=== PATIENT | female | born 1975 | race Caucasian/White ===

== ENCOUNTER 2017-10-09 01:11 | Emergency (ER) | payer OTHER ==
--- NOTE | 2017-10-09 01:51 | ER ---
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 pt stated she ak1 believes she felt something crawl into her ear last week, then she began to have pain to the right ear and now she has itching to the right ear. Transition of care: patient was not received from another setting of care. Onset of symptoms is unknown. Risk Assessment: Do you want to hurt yourself or someone else? Patient reports no desire to harm self or others. Initial Sepsis Screen: Does the patient meet any 2 criteria? No. Patient's initial sepsis screen is negative. Does the patient have a suspected source of infection? No. Patient's initial sepsis screen is negative. Care prior to arrival: None. 01:23 Method Of Arrival: Ambulatory ak1 01:23 Acuity: TAPAN 4 ak1 Triage Assessment: 01:25 General: Appears in no apparent distress. Behavior is calm, cooperative. Pain: ak1 Complains of pain in right ear. 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 - Social history:: Smoking status: Patient uses tobacco products, smokes one pack cigarettes per day. - Ebola Screening: : No symptoms or risks identified at this time. Screenin:25 Abuse screen: Denies threats or abuse. Denies injuries from another. Nutritional ak1 screening: No deficits noted. Tuberculosis screening: No symptoms or risk factors identified. Fall Risk None identified. Assessment: 01:26 General: Appears in no apparent distress. comfortable, Behavior is calm, cooperative, bs1 appropriate for age. Pain: Complains of pain in right ear. Neuro: Level of Consciousness is awake, alert, obeys commands, Oriented to person, place, time, situation, Appropriate for age Denies dizziness, headache. Cardiovascular: Denies chest pain, shortness of breath, Heart tones S1 S2 present Capillary refill < 3 seconds Patient's skin is warm and dry. Respiratory: Airway is patent Trachea midline Respiratory effort is even, unlabored, Respiratory pattern is regular, symmetrical, Breath sounds are clear bilaterally. GI: No signs and/or symptoms were reported involving the gastrointestinal system. : No signs and/or symptoms were reported regarding the genitourinary system. EENT: patient reports pain and itching to right ear and itching to right side of forehead.. Derm: Skin is intact. Musculoskeletal: Circulation, motion, and sensation intact. Capillary refill < 3 seconds, Range of motion: intact in all extremities. 02:21 Reassessment: Patient stayed to assess for reaction from toradol. No reaction noted. bs1 Vital Signs: 01:22 BP 133 / 89; Pulse 96; Resp 18; Temp 97.7; Pulse Ox 97% on R/A; Weight 83.91 kg (R); ak1 Height 5 ft. 4 in. (162.56 cm) (R); Pain 5/10; 02:23 BP 132 / 88; Pulse 91; Resp 18; Temp 98(O); Pulse Ox 100% on R/A; Pain 0/10; bs1 01:22 Body Mass Index 31.75 (83.91 kg, 162.56 cm) ak1 ED Course: 01:14 Patient arrived in ED. es 01:14 Tony Vicente MD is Private Physician. es 01:22 Cici Bonilla, JORJE is Primary Nurse. bs1 01:22 Oliverio Ghosh NP is PHCP. pm1 01:22 Km Weeks MD is Attending Physician. pm1 01:24 Triage completed. ak1 01:25 Arm band placed on Patient placed in an exam room, on a stretcher, Patient notified of ak1 wait time. 01:26 Patient has correct armband on for positive identification. Bed in low position. Call ak1 light in reach. Side rails up X 1. 02:22 No provider procedures requiring assistance completed. Patient did not have IV access bs1 during this emergency room visit. Administered Medications: 01:58 Not Given (Physician Discretion): [place] 10 mg-325 mg 1 tabs PO once pm1 02:02 Drug: TORadol 60 mg Route: IM; Site: right deltoid; bs1 02:20 Follow up: Response: No adverse reaction bs1 Outcome: 01:50 Discharge ordered by MD. pm1 02:22 Discharged to home ambulatory. bs1 02:22 Condition: stable 02:22 Discharge instructions given to patient, Instructed on discharge instructions, follow up and referral plans. medication usage, Demonstrated understanding of instructions, follow-up care, medications, Prescriptions given X 2. 02:23 Patient left the ED. bs1 Signatures: Christie Dowling Amber RN RN ak1 Oliverio Ghosh, CHAR THERAPIST SPEECH pm1 Cici Bonilla, RN RN bs1
--- NOTE | 2017-10-09 01:51 | EDPHYS ---
Physician Documentation [facility] Emergency [facility] Name: Aby Stout Age: 42 yrs Sex: Female : 1975 Arrival Date: 10/09/2017 Time: 01:14 Bed 13 Private MD: Tony Vicente ED Physician Km Weeks HPI: 10/09 02:00 This 42 yrs old Female presents to ER via Ambulatory with complaints of Ear pm1 Pain. 02:00 The patient presents with pain. pm1 02:00 The complaints affect the right ear. Onset: The symptoms/episode began/occurred 1 pm1 week(s) ago. Modifying factors: The symptoms are alleviated by nothing, the symptoms are aggravated by nothing. Associated signs and symptoms: Pertinent negatives: fever, tinnitus, vertigo. Severity of symptoms: in the emergency department the symptoms are unchanged. The patient has not experienced similar symptoms in the past. The patient has not recently seen a physician. 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 - Social history:: Smoking status: Patient uses tobacco products, smokes one pack cigarettes per day. - Ebola Screening: : No symptoms or risks identified at this time. ROS: 02:00 Constitutional: Negative for fever, chills, and weight loss, Eyes: Negative for injury, pm1 pain, redness, and discharge. 02:00 Neck: Negative for injury, pain, and swelling, Cardiovascular: Negative for chest pain, palpitations, and edema, Respiratory: Negative for shortness of breath, cough, wheezing, and pleuritic chest pain, Abdomen/GI: Negative for abdominal pain, nausea, vomiting, diarrhea, and constipation, Back: Negative for injury and pain, MS/Extremity: Negative for injury and deformity, Skin: Negative for injury, rash, and discoloration, Neuro: Negative for headache, weakness, numbness, tingling, and seizure. 02:00 ENT: Positive for dental pain, ear pain, Negative for drainage from ear(s). Exam: 02:00 Constitutional: This is a well developed, well nourished patient who is awake, alert, pm1 and in no acute distress. Head/Face: Normocephalic, atraumatic. Eyes: Pupils equal round and reactive to light, extra-ocular motions intact. Lids and lashes normal. Conjunctiva and sclera are non-icteric and not injected. Cornea within normal limits. Periorbital areas with no swelling, redness, or edema. 02:00 Neck: Trachea midline, no thyromegaly or masses palpated, and no cervical lymphadenopathy. Supple, full range of motion without nuchal rigidity, or vertebral point tenderness. No Meningismus. Chest/axilla: Normal chest wall appearance and motion. Nontender with no deformity. No lesions are appreciated. Cardiovascular: Regular rate and rhythm with a normal S1 and S2. No gallops, murmurs, or rubs. Normal PMI, no JVD. No pulse deficits. Respiratory: Lungs have equal breath sounds bilaterally, clear to auscultation and percussion. No rales, rhonchi or wheezes noted. No increased work of breathing, no retractions or nasal flaring. Abdomen/GI: Soft, non-tender, with normal bowel sounds. No distension or tympany. No guarding or rebound. No evidence of tenderness throughout. Back: No spinal tenderness. No costovertebral tenderness. Full range of motion. Skin: Warm, dry with normal turgor. Normal color with no rashes, no lesions, and no evidence of cellulitis. MS/ Extremity: Pulses equal, no cyanosis. Neurovascular intact. Full, normal range of motion. 02:00 ENT: External ear(s): are unremarkable, Ear canal(s): are normal, TM's: are normal, no evidence of bulging, no dullness, no erythema, no fluid levels, no rupture, no acute changes, Nose: is normal, Mouth: is normal, Dental exam: dental caries, that is moderate, specifically in the lower right third molar (#32), pain, that is moderate, specifically in the lower right third molar (#32). 02:00 Neuro: Orientation: is normal, Motor: moves all fours. Vital Signs: 01:22 BP 133 / 89; Pulse 96; Resp 18; Temp 97.7; Pulse Ox 97% on R/A; Weight 83.91 kg (R); ak1 Height 5 ft. 4 in. (162.56 cm) (R); Pain 5/10; 02:23 BP 132 / 88; Pulse 91; Resp 18; Temp 98(O); Pulse Ox 100% on R/A; Pain 0/10; bs1 01:22 Body Mass Index 31.75 (83.91 kg, 162.56 cm) ak1 MDM: 01:25 Patient medically screened. pm1 01:49 Data reviewed: vital signs. Data interpreted: Pulse oximetry: on room air is 97 %. pm1 Interpretation: normal. Counseling: I had a detailed discussion with the patient and/or guardian regarding: the historical points, exam findings, and any diagnostic results supporting the discharge/admit diagnosis, the need for outpatient follow up, for definitive care, a dentist, to return to the emergency department if symptoms worsen or persist or if there are any questions or concerns that arise at home. 02:04 ED course: Right ear within normal limits. Patient with cavity to right third lower pm1 molar. Likely cause to right ear pain. Recommended evaluation by her dentist. Administered Medications: 01:58 Not Given (Physician Discretion): [place] 10 mg-325 mg 1 tabs PO once pm1 02:02 Drug: TORadol 60 mg Route: IM; Site: right deltoid; bs1 02:20 Follow up: Response: No adverse reaction bs1 Disposition: 07:19 Co-signature as Attending Physician, Km Weeks MD. Disposition: 10/09/17 01:50 Discharged to Home. Impression: Dental pain. - Condition is Stable. - Discharge Instructions: Dental Pain. - Prescriptions for Augmentin 875- 125 mg Oral Tablet - take 1 tablet by ORAL route every 12 hours for 10 days; 20 tablet. Tylenol- Codeine #3 300-30 mg Oral Tablet - take 2 tablets by ORAL route every 6 hours As needed; 20 tablet. - Medication Reconciliation Form, Thank You Letter, Antibiotic Education form. - Follow up: Emergency Department; When: As needed; Reason: Worsening of condition. Follow up: Private Physician; When: 2 - 3 days; Reason: Recheck today's complaints, Continuance of care, Re-evaluation by your physician. - Problem is new. - Symptoms have improved. Signatures: Anjana Li RN RN ak1 Oliverio Ghosh, CHAR SEAM CHECKER pm1 Km Weeks MD MD gs Salazar, Brittany, RN RN bs1 Corrections: (The following items were deleted from the chart) 02:23 01:50 10/09/2017 01:50 Discharged to Home. Impression: Dental pain. Condition is bs1 Stable. Forms are Medication Reconciliation Form, Thank You Letter, Antibiotic Education, Prescription Opioid Use. Follow up: Emergency Department; When: As needed; Reason: Worsening of condition. Follow up: Private Physician; When: 2 - 3 days; Reason: Recheck today's complaints, Continuance of care, Re-evaluation by your physician. Problem is new. Symptoms have improved. pm1
[2017-10-09] MEDS ORDERED: KETOROLAC 30 MG/ML INJ ONE (02:03)
[2017-10-09 02:37] VITALS: BP 132/88; TEMP 98; O2SAT 100
== END 2017-10-09 02:23 | disposition home or self-care (01) ==
LOC: ER 01:11
DX: K08.89 Other specified disorders of teeth and supporting structures (principal); F17.210 Nicotine dependence, cigarettes, uncomplicated; I10 Essential (primary) hypertension; F41.9 Anxiety disorder, unspecified
CPT/HCPCS: 96372; 99283

== ENCOUNTER 2018-08-22 06:34 | Day surgery (SDC) | payer SELFPAY ==
[2018-08-20 16:17] LABS: Urine Appearance CLEAR; Urine Bilirubin NEGATIVE (NEG); Urine Blood NEGATIVE (NEG); Urine Color YELLOW; Urine Glucose NEGATIVE (NEG); Urine Microscopic Reflex NO UMIC; Urine Protein NEGATIVE (NEG); Urine Specific Gravity 1.025 (1.005-1.030); Urine Urobilinogen 0.2 mg/dL (0.2-1.0)
[2018-08-20 16:23] LABS: Absolute Lymphocytes (CBC) 2.5 K/uL (0.7-4.9); Absolute Monocytes 0.8 K/uL (0.1-1.3); Absolute Neutrophil 6.3 K/uL (1.8-8.0); Basophils % 1.1 % (0-1.3); Eosinophils % 1.6 % (0-4.4); Hematocrit 42.2 % (36.0-45.0); Lymphocytes % 25.1 % (15.3-44.8); MPV 10.5 fL (7.6-11.3); Monocytes % 8.3 % (3.3-12.3); RBC Red Blood Cell Count 5.04 M/uL (3.86-4.86)
[2018-08-22] MEDS ORDERED: Ringers Lactate 1,000 ML IV ONE ×2 (07:13→09:06)
[2018-08-22] MEDS ORDERED: CEFAZOLIN/SWI 2gm 2 GM/20 ML SYR ONE (07:13)
[2018-08-22] MEDS ORDERED: SCOPOLAMINE HYDROBROMIDE PATCH TD ONE (07:14)
[2018-08-22] MEDS ORDERED: PROPOFOL 200 MG/20 ML VIAL IV ONE (07:15)
[2018-08-22] MEDS ORDERED: LIDOCAINE 2% MPF 5 ML VIAL ONE (07:15)
[2018-08-22] MEDS ORDERED: FENTANYL CITR 250 MCG/5 ML ONE (07:15)
[2018-08-22] MEDS ORDERED: ROCURONIUM 50 MG/5 ML VIAL IV ONE (07:15)
[2018-08-22] MEDS ORDERED: DEXAMETHASONE 10 MG/ML VIAL ONE (07:15)
[2018-08-22] MEDS ORDERED: MIDAZOLAM HCL 2 MG/2 ML INJ ONE (07:15)
[2018-08-22] MEDS ORDERED: VASOPRESSIN 20 UNIT/ML VIAL ONE (07:27)
[2018-08-22] MEDS ORDERED: NA CHLORIDE 0.9% 100 ML IV ONE (07:27)
[2018-08-22] MEDS ORDERED: CEFAZOLIN/SWI 1gm 1 GM/10 ML SYR ONE (07:27)
[2018-08-22] MEDS ORDERED: EPHEDRINE SULF 50 MG/ML VIAL ONE (09:11)
[2018-08-22] MEDS ORDERED: ONDANSETRON 4 MG/2 ML VIAL ONE (09:40)
[2018-08-22] MEDS ORDERED: GLYCOPYRROLATE 0.2 MG/ML SYR ONE (09:40)
[2018-08-22] MEDS ORDERED: NEOSTIGMINE 1 MG/ML -10 ML VIAL ONE (09:40)
[2018-08-22] MEDS ORDERED: MORPHINE 10 MG/ML VIAL ONE (09:53)
[2018-08-22] MEDS: MORPHINE 4 MG/ML SYR ONE ×2 (10:09→10:14)
[2018-08-22] MEDS ORDERED: MEPERIDINE HCL 25 MG/0.5 ML ONE (10:34)
[2018-08-22 11:27] VITALS: TEMP 97.4; O2SAT 98
--- NOTE | 2018-08-22 13:41 | OP ---
Date of Procedure: 08/22/2018 Surgeon: Nelly Crum MD Preoperative Diagnoses: Stress urinary incontinence, perineocele, possible distal rectocele. Postoperative Diagnoses: Stress urinary incontinence, perineocele, possible distal rectocele. Procedures Performed: 1.Midurethral sling (TVT-O) obturator approach, cystoscopy. 2.Perineocele repair. 3.Distal rectocele repair with perineorrhaphy. Anesthesia: General. Specimens: None. Complications: None. Drains: Camacho catheter and vaginal packing. Findings: Perineocele was present. There was separation of both the deep transverse and superficial transverse perineum. The perineal body was defective and could see the distal part of the rectovagi nal septum detached from the perineal body itself. The patient is a 43-year-old with stress urinary incontinence, urgency symptoms as well. However, th e stress leakage was most distressing for the patient. Denied any dyspareunia at the current time. However, she has decreased sensation and has history of constipation and straining with bowel movemen ts. Has not figured to splint, thus far. A bowel regimen has been prescribed to the patient preop, and she had just started on this before the surgery. The patient is a smoker as well and continues to smoke still, half a pack per day, and her preop POP- Q -2, -2, -5, 5 cm thin, and 7, 0, -2, and -6. No apical defect or anterior defect, although it is s light, it is completely asymptomatic for this patient without any voiding symptoms, so plan was to pe rform the physical therapy alone, physical therapy with local estrogen therapy, or a surgical repair with Kegel's at home, discussing all options the patient was consented, brought to the OR after conse nting for this process. Procedure In Detail: Two grams of Ancef were given preop. The patient was taken back to the OR. Ge neral anesthesia was given, she was placed in a dorsal lithotomy position using Jairon stirrups. Pelv ic exam was performed and the POP-Q is unchanged from the preop -2, -2, -5, 5 cm thin, and 7, the pos terior wall 0, -2, and -6. Rectovaginal exam was performed to confirm the findings as well. Lower abdomen, vulva, vagina, and perineum were prepped and draped in a sterile fashion. Camacho was p laced to drain the bladder and it retracted superiorly. There was slight descent of the anterior wal l due to a slight defect in the apex at level 1, however, no prolapse noted that was significant. Se milton hypermobility noted. Two Allis clamps were placed in the mid urethral area after injecting with dilute vasopressin 20 unit s mixed with 50 cc of normal saline, 15 cc was injected in the midline as well on the sides. Marking pen was used to make the exit points on the groin area, 2 cm lateral to the groin fold and 1 cm supe rior to the horizontal line dropped at the level of the external urethral meatus. The exit points of the TVT-O were marked. Once this was done, the central incision was made with a 15-blade. Dissection carried under the vagi nal mucosa and submucosa, vaginal epithelium and sub-epithelium underneath the fascial plane towards the ipsilateral shoulder at a 45 degree angle to the horizontal and vertical planes underneath, huggi ng the inferior pubic ramus. The obturators space was entered and after the membrane was perforated, the tips of the scissors were opened up and the tract was enlarged, first on the right side, then on the left side. This dissection was performed followed by small amount of bleeding, then the TVT-O k it was opened. Wing guide was placed. The spike was passed in the same direction after passing thro ugh the obturator membrane. The wing guide was removed. Danny was turned in a way that was bringing the handle in the midline after the exit point and came out at the place that was marked on the righ t side, similar pass was taken on the left side without any problems. Then, the sling was adjusted a fter cutting out the plastic spikes in the mid urethral area using the Metzenbaum scissors. Once thi s was optimally placed and tensioned, was able to remove the plastic sheaths and leave the mesh in pl sami. Then, vaginal epithelium and sub-epithelium were closed with the help of a continuous locking 3 -0 Vicryl sutures. The mesh was trimmed on the groins. Skin pulled up to release it from the sling itself and closed wi th Dermabond. The perineocele was addressed after making a triangular incision on the perineum and the triangle inc ision in the vestibule to the distal rectovaginal septum. There was a skin tag on the right part of the hymenal ring, most likely had an epithelial tag about 1.5 cm long. This was very asymmetric and in the way of entry. This is the particular spot that the patient was concerned about, so an ellipti primitivo incision was made in this area injected with vasopressin. This was excised, closed with the help of 3-0 Vicryl, deep stitches were placed and then continuous running subcuticular sutures were place d and this was closed first, then a triangular skin incision was made with the help of a 15-blade aft er injecting this area with the dilute vasopressin about 20 cc was injected, 10 in the vestibule and perineum, and 10 on the sides and the distal posterior wall. The perineal body was dissected out by releasing the perineal skin from the underlying tissues. The deep transverse perineal muscle, all th e muscle complex could be seen just as a remnant, more visible on the right side than on the left gunner e. This appeared to be retracted in this area. So, Allis clamps were placed to hold these, retracte d back to the midline to see how this would come together and closure was planned based on the anatom y of the defect, so once this was planned, then I dissected the top as well opening up the distal par t of the perineal body where there was a defect, then going up the rectovaginal septum about 4 cm int o the posterior midline. Once the posterior wall was exposed, vaginal epithelium was from the rectovaginal septum dissected apart. I could see the defect clearly and so a cizj-lh-tuct suture with 2-0 Vicryl was placed to buttress the proximal part of this disrupted rectovaginal septal defec t. Then, the septal defect was planned to be reattached to the perineal body after the perineal body was reconstructed. The 2-0 Vicryl sutures were taken and end-to-end reapproximation was done using a horizontal mattress suture with a 2-0 [address]-2 needle starting on the left side going in where the muscle had re tracted and pulling it out after placing the first stitch. Then, the horizontal mattress was placed here, tagged with a hemostat. Another stitch was placed distal to it to reconstruct the perineal bod y. A third stitch was placed inferior to it to bring the perineal tissues together most likely inclu ding the superficial part of the external anal sphincter. Two simple 0 Vicryl sutures were placed fr om side to side to reconstruct that. Once those were tied, then the perineal body reconstruction was completed by tying the sutures. Then, the distal rectovaginal septum was brought together with the perineal body while placing a 2-0 Vicryl suture through the rectovaginal and the distal rectovaginal septum, then imbricating it and then coming out through the perineal body and taking it back to the o pposite side of the perineal body and going up into the rectovaginal septum again and bringing this t ogether. The perineocele was reduced by placing the suture and once this was tied down another sutur e was placed to buttress this, a simple 2-0 Vicryl suture was placed on top to hold the distal part o f the septum and the perineal body together. Then the vaginal epithelium was trimmed in the distal p osterior wall. Once everything was made symmetrical and smooth so that there were no rough edges, 2- 0 Vicryl was used to close in a continuous running locked fashion to the level of the vestibule stopp ing just above it. Then 3-0 Vicryl suture was used to continuously run in the subcutaneous plane and then the subcuticular plane. Horizontal mattress running sutures were placed in the distal-most par t closer to the vestibule all the way into the distal posterior wall and the knot was tied over there . The scar on the right lateral aspect and the midline scar, perineal scar were all completely hemos tatic. Rectal exam was performed. No evidence of any trauma to the rectum or foreign body. After c hanging the gloves, vaginal packing was placed. A cystoscopy was performed at the end of the mid ure thral sling to make sure there was no foreign body or trauma to the bladder and there was not, lookin g in the particular area pertinent for an obturator approach. Instrument, needle, and sponge counts were correct at the end the case. EBL was 50. No complications. She will get a voiding trial befor e she is discharged home today. ALEM/MILA Voice ID: [id number] Report ID: [id number]
[2018-08-22 15:32] VITALS: BP 124/68
== END 2018-08-22 15:30 | disposition home or self-care (01) ==
LOC: OR 06:34
PROVIDERS: ATTEND Obstetrics & Gynecology
PROC: 0WQN0ZZ Repair Female Perineum, Open Approach (ICD-10-PCS; 2018-08-22)
PROC: 0TSD0ZZ Reposition Urethra, Open Approach (ICD-10-PCS; 2018-08-22)
PROC: 0JQC0ZZ Repair Pelvic Region Subcutaneous Tissue and Fascia, Open Approach (ICD-10-PCS; principal; 2018-08-22 07:30)
DX: N81.6 Rectocele (principal); N81.81 Perineocele; N39.3 Stress incontinence (female) (male); K59.00 Constipation, unspecified; I10 Essential (primary) hypertension; F41.9 Anxiety disorder, unspecified; F17.210 Nicotine dependence, cigarettes, uncomplicated; Z79.899 Other long term (current) drug therapy
CPT/HCPCS: 36415; 81003; 81025; 85025; 86850; 86900; 86901; J0690; J1100; J2175; J2250; J2405; J2704; J2710; J3010

== ENCOUNTER 2021-12-06 11:30 | Emergency (ER) | payer SELFPAY ==
[2021-12-06] MEDS ORDERED: ONDANSETRON 4 MG/2 ML VIAL ONE ×2 (12:37→15:05)
[2021-12-06] MEDS ORDERED: KETOROLAC 30 MG/ML INJ ONE ×2 (12:40→15:05)
[2021-12-06 13:02] LABS: Absolute Lymphocytes (CBC) 1.4 K/uL (0.7-4.9); Hematocrit 43.9 % (36.0-45.0); Lymphocytes % 11.6 % (15.3-44.8); MPV 9.8 fL (7.6-11.3); RBC Red Blood Cell Count 5.22 M/uL (3.86-4.86)
[2021-12-06 13:11] LABS: Albumin 3.4 g/dL (3.4-5.0); Bilirubin Total 0.5 mg/dL (0.2-1.0); Potassium 4.2 mmol/L (3.5-5.1); Protein, Total 7.2 g/dL (6.4-8.2)
[2021-12-06 14:44] LABS: Urine Blood Negative (Negative); Urine Glucose Negative (Negative); Urine Protein Negative (Negative)
[2021-12-06] MEDS ORDERED: NA CHLORIDE 0.9% 1,000 ML ONE (15:05)
[2021-12-06 15:12] LABS: Urine Mucus Slight /HPF (None Seen); Urine RBC <5 /HPF (None Seen)
--- NOTE | 2021-12-06 15:31 | ER ---
Nurse's Notes [facility] Name: Aby Stout Age: 46 yrs Sex: Female : 1975 Arrival Date: 12/06/2021 Time: 11:38 Bed 12 Private MD: Diagnosis: Vomiting and Diarrhea;Abdominal cramping;Chest discomfort Presentation: 12/06 12:22 Chief complaint: Patient states: vomiting x2 days with abdominal pain "all over". [facility] Coronavirus screen: Vaccine status: Patient reports being unvaccinated. Client denies travel out of the [place] in the last 14 days. Ebola Screen: Patient negative for fever greater than or equal to 101.5 degrees Fahrenheit, and additional compatible Ebola Virus Disease symptoms Patient denies exposure to infectious person. Patient denies travel to an Ebola-affected area in the 21 days before illness onset. Initial Sepsis Screen: Does the patient meet any 2 criteria? No. Patient's initial sepsis screen is negative. Does the patient have a suspected source of infection? No. Patient's initial sepsis screen is negative. Risk Assessment: Do you want to hurt yourself or someone else? Patient reports no desire to harm self or others. 12:22 Method Of Arrival: Ambulatory [facility] 12:22 Acuity: TAPAN 2 [facility] 16:03 Onset of symptoms is unknown. ap3 Triage Assessment: 12:35 General: Appears uncomfortable, obese, well groomed, well developed, Behavior is calm, jh5 cooperative, appropriate for age. Pain: Complains of pain in abdomen. GI: Reports lower abdominal pain, upper abdominal pain. 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 - Social history:: Smoking status: Patient reports the use of cigarette tobacco products. Screenin:02 Abuse screen: Denies threats or abuse. Nutritional screening: No deficits noted. ap3 Tuberculosis screening: No symptoms or risk factors identified. Fall Risk None identified. Assessment: 14:50 Reassessment: Patient appears in no apparent distress at this time. Patient and/or ss family updated on plan of care and expected duration. Pain level reassessed. Patient is alert, oriented x 3, equal unlabored respirations, skin warm/dry/pink. Patient denies pain at this time. Patient states feeling better. Patient states symptoms have improved. 15:00 GI: Bowel sounds present X 4 quads. Abd is soft and non tender X 4 quads. ap3 Vital Signs: 12:22 BP 204 / 99; Pulse 59; Resp 18; Temp 97.2; Pulse Ox 100% ; Weight 81.65 kg; Height 5 5 ft. 4 in. (162.56 cm); Pain 10/10; 14:49 BP 130 / 75; Pulse 70; Resp 18; Pulse Ox 97% on R/A; Pain 0/10; ss 12:22 Body Mass Index 30.90 (81.65 kg, 162.56 cm) 5 ED Course: 11:38 Patient arrived in ED. mr 11:57 Lisbet Sahu MD is Attending Physician. sd2 12:31 Triage completed. 5 12:35 Arm band placed on right wrist. 5 14:25 Skylar Gomez, JORJE is Primary Nurse. ap3 14:43 Urine collected: clean catch specimen, clear, EKG done. Patient maintains SpO2 ss saturation greater than 95% on room air. 14:51 Urine Drug Screen Sent. ss 15:00 Patient has correct armband on for positive identification. Bed in low position. Call ap3 light in reach. Side rails up X 1. 16:03 No provider procedures requiring assistance completed. IV discontinued, intact, ap3 bleeding controlled, No redness/swelling at site. Pressure dressing applied. Administered Medications: 15:03 Drug: NS 0.9% 1000 ml Route: IV; Rate: 1 bolus; Site: right antecubital; ap3 16:02 Follow up: IV Status: Completed infusion; IV Intake: 1000ml ap3 15:03 Drug: Zofran (Ondansetron) 4 mg Route: IVP; Site: right antecubital; ap3 16:02 Follow up: Response: No adverse reaction ap3 15:03 Drug: Ketorolac 15 mg Route: IVP; Site: right antecubital; ap3 16:02 Follow up: Response: No adverse reaction; Pain is decreased ap3 Medication: 16:04 VIS not applicable for this client. ap3 Intake: 16:02 IV: 1000ml; Total: 1000ml. ap3 Outcome: 15:31 Discharge ordered by . sd2 16:03 Discharged to home ambulatory. ap3 16:03 Condition: good 16:03 Discharge instructions given to patient, Instructed on discharge instructions, follow up and referral plans. medication usage, Demonstrated understanding of instructions, follow-up care, medications, Prescriptions given X 2. 16:04 Patient left the ED. ap3 Signatures: Lyndsay Pelletier Shelby, RN RN Skylar Gomez RN RN ap3 Joselyn Nesbitt RN RN jh5 Lisbet Sahu MD MD sd2
--- NOTE | 2021-12-06 15:31 | EDPHYS ---
Physician Documentation [facility] Name: Aby Stout Age: 46 yrs Sex: Female : 1975 Arrival Date: 12/06/2021 Time: 11:38 Bed 12 Private MD: ED Physician Lisbet Sahu HPI: 12/06 12:30 This 46 yrs old Female presents to ER via Unassigned with complaints of Abdominal Pain, sd2 Vomiting, Weakness. 12:51 46-year-old female presents with chief complaint of generalized abdominal cramping, sd2 nausea and vomiting and now generalized weakness. She reports that symptoms started yesterday with no associated fevers but she does endorse diarrhea. She denies any urinary symptoms. She also complains of "lung pain" and reports that this has been ongoing prior to the start of the symptoms. She reports that occasionally she gets this "lung pain" that will upset her stomach as well. She has not taken any medications at home for her symptoms prior to arrival. She reports she has not been able to keep anything down at home including water. She denies any new food exposures that might have caused food poisoning or any known sick contacts.. 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 - Social history:: Smoking status: Patient reports the use of cigarette tobacco products. ROS: 12:51 Constitutional: Negative for fever, chills, and weight loss, Eyes: Negative for injury, sd2 pain, redness, and discharge, Cardiovascular: Negative for chest pain, palpitations, and edema, Respiratory: Negative for shortness of breath, cough, wheezing. : Negative for dysuria, urinary frequency, hesitancy, urgency and hematuria. MS/Extremity: Negative for injury and deformity, Skin: Negative for injury, rash, and discoloration, Neuro: Negative for headache, numbness and tingling. 12:51 Abdomen/GI: Positive for abdominal pain, nausea and vomiting, diarrhea. Exam: 12:51 Constitutional: This is a well developed, well nourished patient who is awake, alert, sd2 and in no acute distress. Head/Face: Normocephalic, atraumatic. Eyes: EOMI, normal conjunctiva bilaterally Chest/axilla: Normal chest wall appearance and motion. Nontender with no deformity. Cardiovascular: Regular rate and rhythm with a normal S1 and S2. No gallops, murmurs, or rubs. 2+ distal pulses. Respiratory: Lungs have equal breath sounds bilaterally, clear to auscultation and percussion. No rales, rhonchi or wheezes noted. No increased work of breathing, no retractions or nasal flaring. Abdomen/GI: Soft, non-tender, with normal bowel sounds. No guarding or rebound. No evidence of tenderness throughout. Skin: Warm, dry with normal turgor. Normal color with no rashes, no lesions, and no evidence of cellulitis. MS/ Extremity: Pulses equal, no cyanosis. Neurovascular intact. Full, normal range of motion. Ambulatory without difficulty. Psych: Awake, alert, with orientation to person, place and time. Behavior, mood, and affect are within normal limits. 14:45 ECG was reviewed by the Attending Physician. NSR, rate 66, no STEMI criteria or ST-T sd2 wave changes Vital Signs: 12:22 BP 204 / 99; Pulse 59; Resp 18; Temp 97.2; Pulse Ox 100% ; Weight 81.65 kg; Height 5 jh5 ft. 4 in. (162.56 cm); Pain 10/10; 14:49 BP 130 / 75; Pulse 70; Resp 18; Pulse Ox 97% on R/A; Pain 0/10; ss 12:22 Body Mass Index 30.90 (81.65 kg, 162.56 cm) 5 MDM: 12:51 Differential diagnosis: Gastritis, cholecystitis, pancreatitis, SBO, diverticulitis, sd2 kidney stone, appendicitis, UTI, dehydration, electrolyte abnormality among others. Data reviewed: vital signs, nurses notes. 14:25 Patient medically screened. sd2 15:29 Data reviewed: lab test result(s), EKG. Counseling: I had a detailed discussion with sd2 the patient and/or guardian regarding: the historical points, exam findings, and any diagnostic results supporting the discharge/admit diagnosis, lab results, the need for outpatient follow up, to return to the emergency department if symptoms worsen or persist or if there are any questions or concerns that arise at home. Medical screen evaluation completed. EMTALA emergency medical condition absent. ED course: Labs reviewed and grossly WNCL. Trop neg. EKG with no ischemic changes. UA without UTI. No signs of significant dehydration. Pt feeling much improved with benign abdominal exam. Tolerating PO in room. She is comfortable with plan for discharge and outpatient follow up and verbalizes understanding of strict return precautions. . 12/06 12:27 Order name: CBC with Diff; Complete Time: 13:59 sd2 12/06 12:27 Order name: CMP; Complete Time: 13:59 sd2 12/06 12:27 Order name: Lipase; Complete Time: 13:59 sd2 12/06 12:27 Order name: Urine Microscopic Only; Complete Time: 15:26 sd2 12/06 12:30 Order name: Urine Drug Screen; Complete Time: 15:37 sd2 12/06 12:54 Order name: Troponin High Sensitivity; Complete Time: 13:59 sd2 12/06 12:27 Order name: Urine Dipstick-Ancillary (obtain specimen); Complete Time: 14:43 sd2 12/06 12:54 Order name: EKG; Complete Time: 12:54 sd2 12/06 12:55 Order name: EKG; Complete Time: 12:55 ss 12/06 14:44 Order name: Urine Dipstick-Ancillary; Complete Time: 14:45 EDMS 12/06 14:44 Order name: Urine --Ancillary (enter results); Complete Time: 15:10 ss 12/06 12:27 Order name: Urine Test (obtain specimen); Complete Time: 14:43 sd2 12/06 12:55 Order name: EKG - Nurse/Tech; Complete Time: 14:43 ss Administered Medications: 15:03 Drug: NS 0.9% 1000 ml Route: IV; Rate: 1 bolus; Site: right antecubital; ap3 16:02 Follow up: IV Status: Completed infusion; IV Intake: 1000ml ap3 15:03 Drug: Zofran (Ondansetron) 4 mg Route: IVP; Site: right antecubital; ap3 16:02 Follow up: Response: No adverse reaction ap3 15:03 Drug: Ketorolac 15 mg Route: IVP; Site: right antecubital; ap3 16:02 Follow up: Response: No adverse reaction; Pain is decreased ap3 Disposition Summary: 12/06/21 15:31 Discharge Ordered Location: Home sd2 Problem: new sd2 Symptoms: have improved sd2 Condition: Stable sd2 Diagnosis - Vomiting and Diarrhea sd2 - Abdominal cramping sd2 - Chest discomfort sd2 Followup: sd2 - With: Private Physician - When: 2 - 3 days - Reason: Recheck today's complaints, Continuance of care, Re-evaluation by your physician Discharge Instructions: - Discharge Summary Sheet sd2 - Food Choices to Help Relieve Diarrhea, Adult sd2 - Diarrhea, Adult sd2 - Nausea and Vomiting, Adult sd2 - Preventing Marijuana Misuse sd2 - Cannabinoid Hyperemesis Syndrome sd2 Forms: - Medication Reconciliation Form sd2 - Thank You Letter sd2 - Antibiotic Education sd2 - Prescription Opioid Use sd2 Prescriptions: - Ibuprofen 800 mg Oral Tablet - take 1 tablet by ORAL route every 8 hours As needed take with food; 20 tablet; sd2 Refills: 0, Product Selection Permitted - Zofran 4 mg Oral Tablet - take 1 tablet by ORAL route every 6 hours As needed; 15 tablet; Refills: 0, sd2 Product Selection Permitted Signatures: Dispatcher [employer] Samra Lee RN RN ss Skylar Gomez RN RN ap3 Joselyn Nesbitt RN RN 5 Lisbet Sahu MD MD sd2
[2021-12-06 15:32] LABS: Barbiturates NEGATIVE (NEGATIVE); Benzodiazepines NEGATIVE (NEGATIVE); Cocaine NEGATIVE (NEGATIVE); METHAMPHETAM NEGATIVE (NEGATIVE); Methadone NEGATIVE (NEGATIVE); Opiates NEGATIVE (NEGATIVE); Phencyclidine NEGATIVE (NEGATIVE); THC Cannibis POSITIVE (NEGATIVE)
--- NOTE | 2021-12-07 06:32 | EKG ---
Test Date: 2021-12-06 Test Time: 14:34:15 Cash Teller: RAMONE MEASUREMENT RESULTS: Intervals: Rate: 66 [place]: 144 QRSD: 86 QT: 430 QTc: 450 [place]: P: 54 [place]: 144 QRS: 5 T: 25 INTERPRETIVE STATEMENTS: Normal sinus rhythm Minimal voltage criteria for LVH, may be normal variant Septal infarct, age undetermined Abnormal ECG Compared to ECG 07/31/2013 16:14:31 Left ventricular hypertrophy now present Myocardial infarct finding now present Electronically Signed On 12-07-21 06:31:15 CDT by Bowen Delaney
[2021-12-07 18:30] VITALS: TEMP 97.2
[2021-12-07 18:32] VITALS: BP 130/75; O2SAT 97
== END 2021-12-06 16:04 | disposition home or self-care (01) ==
LOC: ER 11:30
DX: R11.10 Vomiting, unspecified (principal); R19.7 Diarrhea, unspecified; R10.9 Unspecified abdominal pain; R07.89 Other chest pain; I10 Essential (primary) hypertension; Z72.0 Tobacco use
CPT/HCPCS: 36415; 80053; 80307; 81003; 81015; 81025; 83690; 84484; 85025; 93005; 96361; 96374; 96375; 99284; J2405; J7030

== ENCOUNTER 2022-01-10 22:59 | Inpatient (IN) | payer SELFPAY ==
[2022-01-10] MEDS ORDERED: ONDANSETRON 4 MG/2 ML VIAL ONE (23:52)
[2022-01-10] MEDS ORDERED: MORPHINE 4 MG/ML SYR ONE (23:52)
[2022-01-10] MEDS ORDERED: NA CHLORIDE 0.9% 2,000 ML ONE (23:52)
[2022-01-10] MEDS ORDERED: FAMOTIDINE 20 MG/2 ML VIAL IV ONE (23:52)
[2022-01-11 00:30] LABS: Absolute Lymphocytes (CBC) 1.4 K/uL (0.7-4.9); Hematocrit 43.2 % (36.0-45.0); Lymphocytes % 9.1 % (15.3-44.8); MCV 85.3 fL (80-100); MPV 10.2 fL (7.6-11.3); RBC Red Blood Cell Count 5.06 M/uL (3.86-4.86)
[2022-01-11 00:35] LABS: Protime INR 0.95
[2022-01-11 00:43] LABS: ALT/SGPT 36 U/L (12-78); AST/SGOT 18 U/L (15-37); Albumin 3.3 g/dL (3.4-5.0); Alkaline Phosphatase 147 U/L (45-117); BUN Blood Urea Nitrogen 8 mg/dL (7-18); Bicarbonate 23 mmol/L (21-32); Bilirubin Total 0.7 mg/dL (0.2-1.0); Glomerular Filtration Rate 109 ml/min (=/>90); Glucose Level 151 mg/dL (74-106); Lipase 70 U/L (73-393); Magnesium 1.8 mg/dL (1.8-2.4); NT PRO-BNP 449 pg/mL (<125); Potassium 3.4 mmol/L (3.5-5.1); Protein, Total 7.4 g/dL (6.4-8.2); Sodium Level 137 mmol/L (136-145); Troponin High Sensitivity 6.9 pg/mL (<58.9)
[2022-01-11 00:46] LABS: Bilirubin Direct < 0.1 mg/dL (0-0.2)
--- NOTE | 2022-01-11 01:09 | EDPHYS ---
Physician Documentation [facility] Name: Aby Stout Age: 46 yrs Sex: Female : 1975 Arrival Date: 01/10/2022 Time: 23:02 Bed 13 Private MD: Mandeep Dwyer HPI: 01/10 23:43 This 46 yrs old Female presents to ER via Ambulatory with complaints of christen Weakness, Vomiting. 23:43 The patient or guardian reports chest pain that is located primarily in the anterior christen chest wall, bilaterally. Onset: 1 day(s) ago. The patient presents with abdominal pain in the upper abdomen, in the lower abdomen, abdominal distention in the upper abdomen, in the lower abdomen. Onset: The symptoms/episode began/occurred 1 day(s) ago. The patient presents to the emergency department with nausea, vomiting, abdominal pain, of the right upper quadrant, left upper quadrant, right lower quadrant and left lower quadrant. Onset: The symptoms/episode began/occurred 1 day(s) ago. Possible causes: unknown. The symptoms are aggravated by nothing. The symptoms are alleviated by nothing. The pain does not radiate. Associated signs and symptoms: Pertinent positives: abdominal pain, nausea, vomiting. 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 - Social history:: Smoking status: Patient reports the use of cigarette tobacco products, smokes one-half pack cigarettes per day, smokes one pack cigarettes per day. - Family history:: not pertinent. ROS: 23:43 Constitutional: Negative for fever, chills, and weight loss, Eyes: Negative for injury, christen pain, redness, and discharge, ENT: Negative for injury, pain, and discharge, Neck: Negative for injury, pain, and swelling, Cardiovascular: Negative for chest pain, palpitations, and edema, Respiratory: Negative for shortness of breath, cough, wheezing, and pleuritic chest pain, Back: Negative for injury and pain, : Negative for injury, bleeding, discharge, and swelling, MS/Extremity: Negative for injury and deformity, Skin: Negative for injury, rash, and discoloration, Neuro: Negative for headache, weakness, numbness, tingling, and seizure, Psych: Negative for depression, anxiety, suicide ideation, homicidal ideation, and hallucinations, Allergy/Immunology: Negative for hives, rash, and allergies, Endocrine: Negative for neck swelling, polydipsia, polyuria, polyphagia, and marked weight changes, Hematologic/Lymphatic: Negative for swollen nodes, abnormal bleeding, and unusual bruising. 23:43 Abdomen/GI: Positive for abdominal pain, nausea and vomiting. Exam: 23:43 Constitutional: This is a well developed, well nourished patient who is awake, alert, christen and in no acute distress. Head/Face: Normocephalic, atraumatic. Eyes: Pupils equal round and reactive to light, extra-ocular motions intact. Lids and lashes normal. Conjunctiva and sclera are non-icteric and not injected. Cornea within normal limits. Periorbital areas with no swelling, redness, or edema. ENT: Nares patent. No nasal discharge, no septal abnormalities noted. Tympanic membranes are normal and external auditory canals are clear. Oropharynx with no redness, swelling, or masses, exudates, or evidence of obstruction, uvula midline. Mucous membranes moist. Neck: Trachea midline, no thyromegaly or masses palpated, and no cervical lymphadenopathy. Supple, full range of motion without nuchal rigidity, or vertebral point tenderness. No Meningismus. Chest/axilla: Normal chest wall appearance and motion. Nontender with no deformity. No lesions are appreciated. Cardiovascular: Regular rate and rhythm with a normal S1 and S2. No gallops, murmurs, or rubs. Normal PMI, no JVD. No pulse deficits. Respiratory: Lungs have equal breath sounds bilaterally, clear to auscultation and percussion. No rales, rhonchi or wheezes noted. No increased work of breathing, no retractions or nasal flaring. Abdomen/GI: Soft, non-tender, with normal bowel sounds. No distension or tympany. No guarding or rebound. No evidence of tenderness throughout. Back: No spinal tenderness. No costovertebral tenderness. Full range of motion. Skin: Warm, dry with normal turgor. Normal color with no rashes, no lesions, and no evidence of cellulitis. MS/ Extremity: Pulses equal, no cyanosis. Neurovascular intact. Full, normal range of motion. Neuro: Awake and alert, GCS 15, oriented to person, place, time, and situation. Cranial nerves II-XII grossly intact. Motor strength 5/5 in all extremities. Sensory grossly intact. Cerebellar exam normal. Normal gait. Psych: Awake, alert, with orientation to person, place and time. Behavior, mood, and affect are within normal limits. 23:43 Musculoskeletal/extremity: DVT Exam: No signs of deep vein thrombosis. no pain, no swelling, no tenderness, negative Homans' sign noted on exam, no appreciated bluish discoloration, no erythema, no increased warmth. 01/11 00:13 ECG was reviewed by the Attending Physician. [facility] Vital Signs: 01/10 23:06 BP 182 / 83; Pulse 77; Resp 19 S; Temp 98.2(O); Pulse Ox 96% on R/A; Weight 81.65 kg as6 (R); Height 5 ft. 4 in. (162.56 cm) (R); Pain 10; 23:28 BP 158 / 90; Pulse 77; Resp 20 S; Pulse Ox 97% on R/A; ha1 01/11 00:30 BP 108 / 64; Pulse 64; Resp 18 S; Pulse Ox 99% on R/A; ha1 00:56 BP 108 / 62; Pulse 65; Resp 18 S; Pulse Ox 100% on R/A; ha1 03:10 BP 108 / 64; Pulse 68; Resp 18 S; Pulse Ox 100% on R/A; ha1 01/10 23:06 Body Mass Index 30.90 (81.65 kg, 162.56 cm) as6 MDM: 01/10 23:25 Patient medically screened. christen 23:45 Differential diagnosis: abnormal EKG, acute pericarditis, costochondritis, Nonspecific christen abd pain, gastritis, cholecystitis, pancreatitis, gastritis, hiatal hernia, pancreatitis, peptic ulcer disease, pericarditis, pulmonary embolus, stable angina, thoracic aortic disection. HEART Score: History: Slightly Suspicious (0), ECG: Normal (0), Age: > 45 and < 65 years (1), Risk Factors: > or = 3 Risk factors for atherosclerotic disease (2), [Hypertension] [Active Smoker] [+ Family HX] [Obesity] Troponin: < or = 1 x Normal Limit (0). The patient was not given aspirin in the Emergency Department. Not indicated due to patient's past medical history. The patient's deep vein thrombosis risk score was calculated as follows: Total Score: 0. This patient was found to be at low risk for a deep vein thrombosis by using the Well's assessment criteria. The patient's pulmonary embolism risk score was calculated as follows: Total Score: 0-2 points. This patient was found to be at low risk for a pulmonary embolism by using the Well's assessment criteria. JESSICA Risk Score: 1 - Three or more CAD risk factors, TOTAL SCORE = 1. Data reviewed: vital signs, nurses notes, lab test result(s), EKG, radiologic studies, CT scan, plain films. Data interpreted: fourth hand: rate is 77 beats/min, rhythm is regular, Pulse oximetry: on room air is 97 %. Test interpretation: by ED physician or midlevel provider: ECG, plain radiologic studies. Counseling: I had a detailed discussion with the patient and/or guardian regarding: the historical points, exam findings, and any diagnostic results supporting the discharge/admit diagnosis, lab results, radiology results. 01/10 23:35 Order name: Basic Metabolic Panel; Complete Time: 00:52 christen 01/10 23:35 Order name: CBC with Diff; Complete Time: 00:37 01/10 23:35 Order name: LFT's; Complete Time: 00:52 01/10 23:35 Order name: Magnesium; Complete Time: 00:52 01/10 23:35 Order name: NT PRO-BNP; Complete Time: 00:52 01/10 23:35 Order name: PT-INR; Complete Time: 00:37 01/10 23:35 Order name: Troponin HS; Complete Time: 00:52 01/10 23:35 Order name: XRAY Chest (1 view) 01/10 23:35 Order name: Lipase; Complete Time: 00:52 [facility] 01/10 23:35 Order name: SARS RAPID; Complete Time: 02:06 01/10 23:35 Order name: CT Aorta for Dissection: pe/dissection [facility] 01/10 23:35 Order name: Lactate; Complete Time: 01:00 [facility] 01/11 01:29 Order name: US Abdomen Limited 01/10 23:35 Order name: EKG; Complete Time: 23:36 [facility] 01/10 23:35 Order name: Cardiac monitoring; Complete Time: 00:24 [facility] 01/10 23:35 Order name: EKG - Nurse/Tech; Complete Time: 00:24 [facility] 01/10 23:35 Order name: IV Saline Lock; Complete Time: 23:41 [facility] 01/10 23:35 Order name: Labs collected and sent; Complete Time: 23:41 [facility] 01/10 23:35 Order name: O2 Per Protocol; Complete Time: 23:41 [facility] 01/10 23:35 Order name: O2 Sat Monitoring; Complete Time: :41 [facility] EC/26 00:13 Rate is 96 beats/min. Rhythm is regular. QRS [place] is Normal. [place] interval is normal. QRS christen interval is normal. QT interval is prolonged at 487 msec. No Q waves. T waves are Normal. No ST changes noted. Clinical impression: NSR w/ Non-specific ST/T Changes and No evidence of ischemia. Interpreted by me. Reviewed by me. Administered Medications: 01:02 Discontinued: NS 0.9% 1000 ml IV at 125 ml/hr continuous christen 00:02 Drug: NS 0.9% 1000 ml Route: IV; Rate: 1 bolus; Site: right forearm; ha1 00:04 Drug: Zofran (Ondansetron) 4 mg Route: IVP; Site: right forearm; ha1 00:30 Follow up: Response: No adverse reaction ha1 00:06 Drug: morphine 4 mg Route: IVP; Infused Over: 4 mins; Site: right forearm; ha1 00:30 Follow up: Response: No adverse reaction; Pain is decreased; RASS: Alert and Calm (0) ha1 00:08 Drug: Pepcid (famotidine) 20 mg Route: IVP; Site: right forearm; ha1 00:30 Follow up: Response: No adverse reaction ha1 00:10 Drug: NS 0.9% 1000 ml Route: IV; Rate: 125 ml/hr; Site: right forearm; ha1 01:30 Drug: Flagyl (metroNIDAZOLE) 500 mg Volume: 100 ml; Route: IVPB; Rate: 200 ml/hr; ha1 Infused Over: 30 mins; Site: right forearm; 02:46 Drug: Nicoderm CQ Patch 21 mg/24 hr 1 patches {Note: patch in the R. interior upper ha1 arm.} Route: Transdermal; Site: abdomen; Disposition Summary: 01/11/22 01:08 Hospitalization Ordered Hospitalization Status: Inpatient Admission christen Provider: [facility] cha Condition: Fair christen Problem: new christen Symptoms: have improved christen Bed/Room Type: Standard [facility] Location: [facility](01/11/22 02:12) Room Assignment: [facility]-(01/11/22 02:12) Diagnosis - Abdominal pain, Generalized christen - Other cholelithiasis without obstruction christen - Elevated white blood cell count christen - Vomiting christen - Hypokalemia christen - Indeterminate colitis - pancolitis christen Forms: - Medication Reconciliation Form christen - SBAR form christen Signatures: Dispatcher [employer] EDMS Elmira Joy RN RN mw Anderson, Corey, MD MD cha Attema, Lee, MARBLE INSTALLER-C MARBLE INSTALLER-Cla1 Enrrique Vaughn RN RN as6 Janna Marquis RN RN ha1 Corrections: (The following items were deleted from the chart) 02:12 01:08 Telemetry/MedSurg (Inpatient) [facility] 02:12 01:08 [facility]
--- NOTE | 2022-01-11 01:09 | ER ---
Nurse's Notes [facility] Name: Aby Stout Age: 46 yrs Sex: Female : 1975 Arrival Date: 01/10/2022 Time: 23:02 Bed 13 Private MD: Diagnosis: Abdominal pain, Generalized;Other cholelithiasis without obstruction;Elevated white blood cell count;Vomiting;Hypokalemia;Indeterminate colitis-pancolitis Presentation: 01/10 23:06 Chief complaint: Patient states: "I'm having pain. I can't stop throwing up. At [place] as6 they told me I had inflammation in my colon". Coronavirus screen: At this time, the client does not indicate any symptoms associated with coronavirus-19. Ebola Screen: No symptoms or risks identified at this time. Initial Sepsis Screen: Does the patient meet any 2 criteria? No. Patient's initial sepsis screen is negative. Does the patient have a suspected source of infection? No. Patient's initial sepsis screen is negative. Risk Assessment: Do you want to hurt yourself or someone else? Patient reports no desire to harm self or others. Onset of symptoms was January 10, 2022. 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 - Social history:: Smoking status: Patient reports the use of cigarette tobacco products, smokes one-half pack cigarettes per day, smokes one pack cigarettes per day. - Family history:: not pertinent. Screenin:29 Abuse screen: Denies threats or abuse. Denies injuries from another. Nutritional ha1 screening: No deficits noted. Tuberculosis screening: No symptoms or risk factors identified. Fall Risk None identified. Assessment: 23:26 General: Appears ill, Behavior is calm, cooperative. Pain: Complains of pain in ha1 ABDOMEN. Pain: Pain does not radiate. Pain currently is 10 out of 10 on a pain scale. Quality of pain is described as crampy, Pain began THIS MORNING. Neuro: Level of Consciousness is awake, alert, obeys commands, Oriented to person, place, time, situation. Cardiovascular: Capillary refill < 3 seconds Patient's skin is warm and dry. Respiratory: Airway is patent Trachea midline Respiratory effort is even, unlabored, Respiratory pattern is regular, symmetrical. GI: Abdomen is non-distended, obese, Bowel sounds present X 4 quads. Reports lower abdominal pain, upper abdominal pain, vomiting. : No signs and/or symptoms were reported regarding the genitourinary system. Musculoskeletal: Circulation, motion, and sensation intact. Range of motion: intact in all extremities. 01/11 00:56 Reassessment: Patient and/or family updated on plan of care and expected duration. Pain ha1 level reassessed. Patient is alert, oriented x 3, equal unlabored respirations, skin warm/dry/pink. Patient denies pain at this time. Patient states feeling better. Patient states symptoms have improved. 01:10 Reassessment: Patient and/or family updated on plan of care and expected duration. Pain ha1 level reassessed. Patient is alert, oriented x 3, equal unlabored respirations, skin warm/dry/pink. going to CT. 02:10 Reassessment: Patient and/or family updated on plan of care and expected duration. Pain ha1 level reassessed. Patient is alert, oriented x 3, equal unlabored respirations, skin warm/dry/pink. 03:10 Reassessment: Patient and/or family updated on plan of care and expected duration. Pain ha1 level reassessed. Patient is alert, oriented x 3, equal unlabored respirations, skin warm/dry/pink. Patient denies pain at this time. Patient states feeling better. Patient states symptoms have improved. Vital Signs: 01/10 23:06 BP 182 / 83; Pulse 77; Resp 19 S; Temp 98.2(O); Pulse Ox 96% on R/A; Weight 81.65 kg as6 (R); Height 5 ft. 4 in. (162.56 cm) (R); Pain 12/26; 23:28 BP 158 / 90; Pulse 77; Resp 20 S; Pulse Ox 97% on R/A; ha1 01/11 00:30 BP 108 / 64; Pulse 64; Resp 18 S; Pulse Ox 99% on R/A; ha1 00:56 BP 108 / 62; Pulse 65; Resp 18 S; Pulse Ox 100% on R/A; ha1 03:10 BP 108 / 64; Pulse 68; Resp 18 S; Pulse Ox 100% on R/A; ha1 01/10 23:06 Body Mass Index 30.90 (81.65 kg, 162.56 cm) as6 ED Course: 01/10 23:02 Patient arrived in ED. bp1 23:10 Triage completed. as6 23:11 Arm band placed on. as6 23:12 Patient has correct armband on for positive identification. Placed in gown. Bed in low ha1 position. Call light in reach. Side rails up X 1. 23:24 Mandeep Zimmerman MD is Attending Physician. christen 23:25 Janna Marquis RN is Primary Nurse. ha1 23:57 XRAY Chest (1 view) In Process Unspecified. EDMS 01/11 00:24 Lactate Sent. ha1 01:02 Armani River MD is Hospitalizing Provider. christen 01:38 CT Aorta for Dissection: pe/dissection In Process Unspecified. EDMS 01:55 US Abdomen Limited In Process Unspecified. EDMS 03:37 No provider procedures requiring assistance completed. Patient admitted, IV remains in ha1 place. Administered Medications: 01:02 Discontinued: NS 0.9% 1000 ml IV at 125 ml/hr continuous christen 00:02 Drug: NS 0.9% 1000 ml Route: IV; Rate: 1 bolus; Site: right forearm; ha1 00:04 Drug: Zofran (Ondansetron) 4 mg Route: IVP; Site: right forearm; ha1 00:30 Follow up: Response: No adverse reaction ha1 00:06 Drug: morphine 4 mg Route: IVP; Infused Over: 4 mins; Site: right forearm; ha1 00:30 Follow up: Response: No adverse reaction; Pain is decreased; RASS: Alert and Calm (0) ha1 00:08 Drug: Pepcid (famotidine) 20 mg Route: IVP; Site: right forearm; ha1 00:30 Follow up: Response: No adverse reaction ha1 00:10 Drug: NS 0.9% 1000 ml Route: IV; Rate: 125 ml/hr; Site: right forearm; ha1 01:30 Drug: Flagyl (metroNIDAZOLE) 500 mg Volume: 100 ml; Route: IVPB; Rate: 200 ml/hr; ha1 Infused Over: 30 mins; Site: right forearm; 02:46 Drug: Nicoderm CQ Patch 21 mg/24 hr 1 patches {Note: patch in the R. interior upper ha1 arm.} Route: Transdermal; Site: abdomen; Medication: 03:39 VIS not applicable for this client. 1 Outcome: 01:08 Decision to Hospitalize by Provider. christen 03:37 Admitted to L \\T\\ D, accompanied by tech, via wheelchair, room 271, Report called to neela Jones RN 03:37 Condition: stable 03:37 Discharge instructions given to patient, Instructed on the need for admit, Demonstrated understanding of instructions. 03:[address] [facility] [place] [facility] Signatures: Dispatcher [employer] EDMandeep Dorantes MD MD cha Paniauga, Brittany bp1 Slawson, Ashby, RN RN as6 Janna Marquis, JORJE RN ha1
[2022-01-11] MEDS ORDERED: CIPROFLOXACIN 400mg IV 400 MG/200 ML BAG IV ONE (01:11)
[2022-01-11] MEDS ORDERED: METRONIDAZOLE 500mg IVPB 500 MG/100 ML BAG IV ONE (01:11)
[2022-01-11] MEDS ORDERED: NA CHLORIDE 0.9% 1,000 ML ONE (01:12)
[2022-01-11] MEDS ORDERED: NS KCL 20MEQ 1,000 ML IV ONE (01:15)
[2022-01-11 02:05] LABS: SARS-CoV-2 Antigen Rapid Res Negative (Negative)
[2022-01-11] MEDS ORDERED: NICOTINE 21 MG/PAT TD ONE (02:30)
--- NOTE | 2022-01-11 02:38 | P.HP ---
Certification for Inpatient Patient admitted to: Inpatient With expected LOS: >2 Midnights Patient will require the following post-hospital care: None Practitioner: I am a practitioner with admitting privileges, knowledge of patient current condition, hospital course, and medical plan of care. Services: Services provided to patient in accordance with Admission requirements found in Title 42 Section 412.3 of the Code of Federal Regulations Patient History Date of Service: 01/11/22 Reason for admission: Pancolitis History of Present Illness: 46-year-old female with history of hypertension, anxiety presents the emergency department for abdominal pain, vomiting. She reports that her symptoms started this morning, she has had similar episodes multiple times in the past. She was evaluated at outside hospital early yesterday morning diagnosed with pancolitis, she elected to leave AMA with plans to follow-up with her primary care doctor although her symptoms got worse throughout the day and she therefore presented here for evaluation. She was evaluated here in the emergency department her labs were significant for leukocytosis, mild hypokalemia. Abdominal ultrasound was performed which revealed cholelithiasis without wall thickening, biliary ductal dilatation or pericholecystic fluid, sonographic Bridges sign negative. Chest x-ray without acute findings CT aortogram here negative, CT performed at outside hospital this morning with pancolitis. Patient still with vomiting, abdominal pain. ED provider wishes to admit for further evaluation and management. Allergies No Known Drug Allergies Allergy (Verified 08/22/18 07:36) Unknown Home Medications: ALPRAZolam [Xanax] 0.25 mg PO BID PRN 08/20/18 Acetaminophen [Tylenol] 650 mg PO PRN PRN 08/20/18 Chlorpheniramine/Dextromethorp [Cough-Cold Hbp Tablet] 1 each PO PRN PRN 08/20/18 Ibuprofen 600 mg PO DAILYPRN PRN 08/20/18 atenoloL [Tenormin] 50 mg PO [id number] 08/20/18 - Past Medical/Surgical History -: Hypertension -: Anxiety -: Bladder sling -: Tubal ligation Psychosocial/ Personal History: Lives at home with family - Family History Family History: Reviewed- Non-Contributory - Social History Smoking Status: Heavy Tobacco smoker (>10 cigarettes/day) Counseled patient to stop smoking for: less than 10 minutes Smoking therapy provided: Yes Patient receptive to therapy: Yes Alcohol use: No CD- Drugs: No Caffeine use: No Place of Residence: Home Review of Systems 10-point ROS is otherwise unremarkable Gastrointestinal: Nausea, Vomiting, Abdominal Pain Physical Examination - Physical Exam General: Alert, In no apparent distress, Oriented x3 HEENT: Atraumatic, PERRLA, Mucous membr. moist/pink, EOMI, Sclerae nonicteric Neck: Supple, 2+ carotid pulse no bruit, No LAD, Without JVD or thyroid abnormality Respiratory: Clear to auscultation bilaterally, Normal air movement Cardiovascular: Regular rate/rhythm, Normal S1 S2 Capillary refill: <2 Seconds Gastrointestinal: Normal bowel sounds, Tenderness (Mild generalized abdominal tenderness) Musculoskeletal: No tenderness Integumentary: No rashes Neurological: Normal speech, Normal strength at 5/5 x4 extr, Normal tone, Normal affect - Studies Laboratory Data (last 24 hrs) 01/10/22 23:20: PT 10.4, INR 0.95 01/10/22 23:20: WBC 15.30 H, Hgb 14.0, Hct 43.2, Plt Count 302 01/10/22 23:20: Sodium 137, Potassium 3.4 L, BUN 8, Creatinine 0.65, Glucose 151 H, Magnesium 1.8, Total Bilirubin 0.7, AST 18, ALT 36, Alkaline Phosphatase 147 H, Lipase 70 L Assessment and Plan - Plan Assessment: Abdominal pain/tenderness, intractable vomiting secondary to pancolitis Hypertension Anxiety Hypokalemia Cholelithiasis Tobacco abuse Plan: Abdominal pain/tenderness, intractable vomiting secondary to pancolitis: N.p.o., IVF, IV antibiotics, as needed pain medications and antiemetics. Advance diet as tolerated. Hypertension: Hold oral medications at this time. Anxiety: Restart home medication when appropriate Hypokalemia: Protocol in place, replaced in ED. Cholelithiasis: No wall thickening, pericholecystic fluid, Bridges's negative, so nographic Bridges sign negative. Serial abdominal exams doubt acute cholecystitis. Tobacco abuse: Counseled on need for cessation, patient report smoking 2 packs/day. Provide with NicoDerm patch. DVT PPX: Lovenox Code status: Full Discharge Plan: Home Plan to discharge in: 48 Hours - Advance Directives Does patient have a Living Will: No Does patient have a Durable POA for Healthcare: No - Code Status/Comfort Care Code Status Assessed: Yes (Full code) Critical Care: No Time Spent Managing Pts Care (In Minutes): 70
[2022-01-11] MEDS ORDERED: Ringers Lactate 1,000 ML IV SCH (03:52)
[2022-01-11] MEDS ORDERED: SODIUM CHLORIDE 0.9% 10ML INJ IV PRN (03:52)
[2022-01-11 04:02] VITALS: O2SAT 100
[2022-01-11 04:17] VITALS: BMI 30.5
[2022-01-11] MEDS ORDERED: ONDANSETRON 4 MG/2 ML VIAL IV PRN (06:00)
[2022-01-11 07:23] LABS: Absolute Lymphocytes (CBC) 2.4 K/uL (0.7-4.9); Hematocrit 34.9 % (36.0-45.0); Lymphocytes % 22.1 % (15.3-44.8); MCV 85.3 fL (80-100); MPV 10.1 fL (7.6-11.3)
[2022-01-11 07:38] LABS: Albumin 2.5 g/dL (3.4-5.0); Bilirubin Total 0.5 mg/dL (0.2-1.0); Magnesium 1.9 mg/dL (1.8-2.4); Potassium 3.3 mmol/L (3.5-5.1); Protein, Total 5.4 g/dL (6.4-8.2)
[2022-01-11] MEDS: MORPHINE 2 MG/ML SYR IV PRN ×2 (08:22→13:33)
[2022-01-11] MEDS ORDERED: CIPROFLOXACIN 400mg IV 400 MG/200 ML BAG IV SCH (09:00)
[2022-01-11] MEDS ORDERED: ENOXAPARIN 40 MG/0.4 ML SQ SCH (09:00)
[2022-01-11] MEDS ORDERED: PANTOPRAZOLE 40 MG INJ IVP SCH (09:00)
[2022-01-11] MEDS ORDERED: METRONIDAZOLE 500mg IVPB 500 MG/100 ML BAG IV SCH (09:00)
[2022-01-11 09:17] VITALS: TEMP 97.8
[2022-01-11] MEDS ORDERED: POTASSIUM 25 MEQ EFFERV TAB PO ONE (09:45)
--- NOTE | 2022-01-11 10:51 | RAD REPORT ---
EXAM DESCRIPTION: US - Abdomen Exam Limited - 01/11/2022 1:53 am CLINICAL HISTORY: 46 years Female ABD PAIN CLINICAL HISTORY: Limited sonographic imaging of the gallbladder was performed on 01/11/2022 at 1: 5 0 AM. COMPARISON: CT abdomen and pelvis angiography performed on 01/11/2022 at 1:25 AM. FINDINGS: The gallbladder contains multiple prominent shadowing intraluminal echoes consistent with gallstones. Gallstones appear to fill the lumen of the gallbladder. The gallbladder wall measures mika roximately 2.2 mm in diameter. There is no evidence of pericholecystic fluid. The technologist did no t detect a positive Sonographic Bridges sign. The common bile duct measures approximately 3.5 mm in di ameter. There is no evidence of biliary ductal dilatation. There is no evidence of choledocholithiasi s. IMPRESSION: Cholelithiasis without evidence of biliary ductal dilatation, gallbladder wall thickenin g, positive sonographic Bridges sign or pericholecystic fluid. Electronically signed by: Renetta Goldsmith DO 01/11/2022 2:33 AM CDT Due to temporary technical issues with the PACS/Fluency reporting system, reports are being signed by the in house radiologists without review as a courtesy to insure prompt reporting. The interpreting radiologist is fully responsible for the content of the report.
--- NOTE | 2022-01-11 12:08 | RAD REPORT ---
EXAM DESCRIPTION: RAD - Chest Single View - 01/10/2022 11:55 pm CLINICAL HISTORY: 46 years Female, CHEST PAIN TECHNIQUE: 1 view (Single frontal view of the chest) COMPARISON: None. FINDINGS: Limited exam secondary to patient's body habitus and portable AP technique. LINES AND TUBES: None. CARDIOVASCULAR STRUCTURES: Normal heart size. Mild pulmonary venous congestion versus projectional ar tifact. LUNGS: No confluent areas of acute consolidation. PLEURA: No layering pleural effusions. No pneumothorax. BONES: No acute osseous abnormality of the thorax. IMPRESSION: 1. Mild pulmonary venous congestion versus projectional artifact. 2. Otherwise, no acute cardiopulmonary disease. Electronically signed by: Ke Lerma MD 01/11/2022 12:13 AM CDT Due to temporary technical issues with the PACS/Fluency reporting system, reports are being signed by the in house radiologists without review as a courtesy to insure prompt reporting. The interpreting radiologist is fully responsible for the content of the report.
[2022-01-11 12:16] VITALS: BP 138/68
--- NOTE | 2022-01-11 12:24 | RAD REPORT ---
EXAM DESCRIPTION: CT - Angio Aorta For Dissection - 01/11/2022 1:36 am CLINICAL HISTORY: 46 years Female chest pain, rule out aortic dissection. TECHNIQUE: Following the administration of intravenous contrast, multiple high-resolution axial imag es of the chest, abdomen and pelvis were performed followed by sagittal and coronal reconstructed pretty ges. Coronal and sagittal MIP images were also performed.The CT study is performed according to ALARA (as low as reasonably achievable) or ALARA/IMAGE GENTLY, with automatic adjustment of mA and/or kV a ccording to patient size. Performed on: 01/11/2022 at 1:29 AM COMPARISON: CT abdomen and pelvis with IV contrast performed on 01/11/2022 at 2:29 PM FINDINGS: CTA CHEST: There is satisfactory visualization and contrast opacification of pulmonary arteries. No definite i ntra-arterial filling defects are identified to suggest acute or chronic pulmonary embolism. The thor acic aorta is normal in caliber and contour without evidence of aneurysm or dissection. The lungs are well expanded. There are centrilobular emphysematous changes best appreciated in the up per lobes and there is scattered fibrosis and/or atelectasis in the right lower lobe and lingula. The re is mosaic attenuation of the lung parenchyma which may be related to underlying small airways dise ase. No focal airspace consolidation is identified. There are no pleural effusions. There is no pneum othorax. The central airways are patent. There is elevation of the right hemidiaphragm. The heart is normal in size. There is no pericardial effusion. There is no evidence of hilar, mediastinal or axillary lymphadenopathy. No acute osseous abnormality is identified. Non-Angiographic Findings: The thyroid gland is normal in size and configuration as visualized. CTA ABDOMEN AND PELVIS: Liver: The liver is normal in size and configuration. There is eventration of the right hemidiaphragm . No focal hepatic abnormalities are identified. Liver attenuation is likely within normal limits con sidering the arterial phase of contrast-enhancement. Spleen: The spleen is normal is size, configuration and attenuation. Gallbladder and bile duct: The gallbladder is well-distended and contains multiple gallstones. Ther e is no biliary ductal dilatation. Pancreas: The pancreas is grossly normal in size and configuration. Adrenal Glands: The adrenal glands are normal in size and configuration. Kidneys: The kidneys are normal in size and configuration. There is no evidence of hydronephrosis. Th ere is no evidence of nephrolithiasis. No definite solid or cystic renal mass lesions are identified. Stomach: The stomach is grossly normal. There is no definite hiatal hernia. Bowel: The bowel gas pattern is non specific and non obstructive. Appendix: The appendix is normal. Free air: There is no evidence of free air. Free fluid: There is no evidence of free fluid. Vasculature: The aorta is normal in caliber and contour. There is no evidence of aneurysm or aortic d issection. There are very mild atherosclerotic calcifications along the infrarenal abdominal aorta an d common iliac arteries. The celiac artery, superior and inferior mesenteric arteries and bilateral r enal arteries are patent and are normal in caliber and contour. There are 2 left renal arteries. The common iliac arteries, internal and external iliac arteries and common femoral arteries are normal in caliber and contour. The inferior vena cava is grossly unremarkable. Lymphadenopathy: No pathologic lymphadenopathy is identified. Bladder: The bladder is well distended and smooth in contour. Reproductive: The uterus is grossly within normal limits. There is approximately 3.7 x 3.9 cm simple appearing left adnexal cyst likely ovarian in nature. No follow-up imaging is recommended. Bones: No acute osseous abnormalities are identified. Soft tissues: No focal soft tissue abnormalities are identified. There is a small fat-containing vent ral umbilical hernia. IMPRESSION: CTA CHEST: 1. No evidence of pulmonary embolism, aortic aneurysm or aortic dissection. 2. Centrilobular emphysematous changes in the upper lobes with mosaic attenuation of the lung paren chyma which may be related to underlying small airways disease. 3. Elevation of the right hemidiaphragm. CTA ABDOMEN AND PELVIS: 1. No evidence of acute intra-abdominal or intrapelvic pathology. 2. Normal CTA of the abdomen and pelvis without evidence of aneurysm, dissection, vascular occlusio n or significant stenosis. 3. Cholelithiasis without evidence of biliary ductal dilatation. 4. Small fat-containing ventral umbilical hernia. Electronically signed by: Renetta Goldsmith DO 01/11/2022 2:28 AM CDT Due to temporary technical issues with the PACS/Fluency reporting system, reports are being signed by the in house radiologists without review as a courtesy to insure prompt reporting. The interpreting radiologist is fully responsible for the content of the report.
--- NOTE | 2022-01-11 13:07 | EKG ---
Test Date: 2022-01-11 Test Time: 00:05:43 School Cook: JENNA MEASUREMENT RESULTS: Intervals: Rate: 96 NC: 148 QRSD: 88 QT: 386 QTc: 487 [place]: P: 75 NC: 148 QRS: 36 T: 50 INTERPRETIVE STATEMENTS: Normal sinus rhythm Nonspecific ST abnormality Prolonged QT Abnormal ECG Compared to ECG 12/06/2021 14:34:15 ST (T wave) deviation now present Prolonged QT interval now present Left ventricular hypertrophy no longer present Myocardial infarct finding no longer present Electronically Signed On 01-11-22 13:06:36 CDT by Pravin Jaquez
[2022-01-12] MEDS ORDERED: NICOTINE 21 MG/PAT TD SCH (09:00)
== END 2022-01-11 16:13 | disposition home or self-care (01) | DRG 446 ==
LOC: ER 22:59 → ERHOLD 01-11 02:06 → 2ND-WC 01-11 03:11
PROVIDERS: ADMIT Hospitalist; ATTEND Hospitalist
DX: K80.80 Other cholelithiasis without obstruction (principal); I10 Essential (primary) hypertension; E87.6 Hypokalemia; F41.9 Anxiety disorder, unspecified; D72.829 Elevated white blood cell count, unspecified; F17.210 Nicotine dependence, cigarettes, uncomplicated; Z88.1 Allergy status to other antibiotic agents; Z98.51 Tubal ligation status; Z79.01 Long term (current) use of anticoagulants; Z28.310 Unvaccinated for COVID-19; Z79.899 Other long term (current) drug therapy; Z20.822 Contact with and (suspected) exposure to COVID-19
CPT/HCPCS: 36415; 71045; 71275; 74175; 76705; 80048; 80053; 80076; 83605; 83690; 83735; 83880; 84145; 84484; 85025; 85610; 87811; 93005; 96374; 96375; 99285; C9113; J0744; J1650; J2270; J2405; J3480; J7030; J7120; Q9967

== ENCOUNTER 2022-01-17 00:52 | Inpatient (IN) | payer SELFPAY ==
[2022-01-17] MEDS ORDERED: ONDANSETRON 4 MG/2 ML VIAL ONE ×2 (01:44→02:53)
[2022-01-17] MEDS ORDERED: NA CHLORIDE 0.9% 1,000 ML ONE (02:02)
[2022-01-17] MEDS ORDERED: FENTANYL CITR 100 MCG/2 ML ONE (02:02)
[2022-01-17 02:27] LABS: Absolute Lymphocytes (CBC) 1.7 K/uL (0.7-4.9); Hematocrit 44.4 % (36.0-45.0); Lymphocytes % 12.1 % (15.3-44.8); MCV 85.3 fL (80-100); MPV 10.3 fL (7.6-11.3); RBC Red Blood Cell Count 5.21 M/uL (3.86-4.86)
[2022-01-17 02:38] LABS: Albumin 3.5 g/dL (3.4-5.0); Bilirubin Total 0.9 mg/dL (0.2-1.0); Potassium 3.9 mmol/L (3.5-5.1); Protein, Total 7.5 g/dL (6.4-8.2)
[2022-01-17] MEDS ORDERED: PIPERACIL/TAZO 3.375 GM VIAL IV ONE (02:53)
[2022-01-17] MEDS ORDERED: NA CHLORIDE 0.9% 250 ML ONE (02:53)
[2022-01-17] MEDS ORDERED: FAMOTIDINE 20 MG/2 ML VIAL IV ONE (02:57)
--- NOTE | 2022-01-17 03:00 | ER ---
Nurse's Notes [facility] Name: Aby Stout Age: 46 yrs Sex: Female : 1975 Arrival Date: 01/17/2022 Time: 00:56 Bed 14 Private MD: Diagnosis: Vomiting;Epigastric abdominal tenderness;COPD/ Chronic obstructive pulmonary disease, unspecified;Cholecystitis, unspecified;Elevated white blood cell count Presentation: 01/17 01:12 Chief complaint: Patient states: C/o N/V, and abdominal pain since last night. lg3 Coronavirus screen: Vaccine status: Patient reports being unvaccinated. nausea, vomiting. Ebola Screen: No symptoms or risks identified at this time. Risk Assessment: Do you want to hurt yourself or someone else? Patient reports no desire to harm self or others. Onset of symptoms was January 16, 2022. 01:12 Method Of Arrival: Ambulatory lg3 01:12 Acuity: TAPAN 3 lg3 03:49 Initial Sepsis Screen: Does the patient meet any 2 criteria? No. Patient's initial lg3 sepsis screen is negative. Does the patient have a suspected source of infection? No. Patient's initial sepsis screen is negative. Triage Assessment: 01:16 General: Appears uncomfortable, Behavior is cooperative, anxious. Pain: Complains of lg3 pain in right upper quadrant and right lower quadrant Pain radiates to back Pain currently is 10 out of 10 on a pain scale. GI: Pt is actively vomiting clear fluid, undigested food, Reports lower abdominal pain, upper abdominal pain, nausea, vomiting, since last night. Derm: Skin is pink, warm \T\ dry. 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 - Social history:: Smoking status: Patient reports the use of cigarette tobacco products, smokes one pack cigarettes per day. Screenin:05 Abuse screen: Denies threats or abuse. Denies injuries from another. Nutritional lg3 screening: No deficits noted. Tuberculosis screening: No symptoms or risk factors identified. Fall Risk None identified. Assessment: 02:05 General: Appears in no apparent distress. uncomfortable, Behavior is calm, cooperative. lg3 Pain: Complains of pain in abdomen Pain radiates to back Pain currently is 10 out of 10 on a pain scale. Noted to be agitated, grimacing, guarding, moaning, resistant to movement, restless. Neuro: No deficits noted. Grigsby Agitation-Sedation Scale (RASS): +1 Restless Level of Consciousness is awake, alert, obeys commands, Oriented to person, place, time, situation. Cardiovascular: No deficits noted. Denies chest pain, shortness of breath, Capillary refill < 3 seconds Clubbing of nail beds is absent JVD is absent Patient's skin is warm and dry. Respiratory: No deficits noted. Airway is patent Trachea midline Respiratory effort is even, unlabored, Respiratory pattern is regular, symmetrical, Breath sounds are clear bilaterally. GI: Pt is actively vomiting bile, Bowel sounds present X 4 quads. Abd is soft X 4 quads Abdomen is tender to palpation. : No deficits noted. No signs and/or symptoms were reported regarding the genitourinary system. EENT: No deficits noted. No signs and/or symptoms were reported regarding the EENT system. Derm: No deficits noted. No signs and/or symptoms reported regarding the dermatologic system. Skin is intact, is healthy with good turgor, Skin is dry, Skin is normal, Skin temperature is warm. Musculoskeletal: No deficits noted. No signs and/or symptoms reported regarding the musculoskeletal system. Circulation, motion, and sensation intact. Range of motion: intact in all extremities. 02:50 GI: Pt is actively vomiting. lg3 03:30 GI: Pt is actively vomiting. lg3 03:47 Reassessment: Patient appears in no apparent distress at this time. No changes from lg3 previously documented assessment. Patient and/or family updated on plan of care and expected duration. Pain level reassessed. Patient is alert, oriented x 3, equal unlabored respirations, skin warm/dry/pink. Patient states symptoms have not improved. Vital Signs: 01:12 BP 162 / 86; Pulse 73; Resp 17; Temp 97.8(O); Pulse Ox 97% on R/A; Weight 81.65 kg (R); lg3 Height 5 ft. 4 in. (162.56 cm); Pain 10/10; 03:47 BP 158 / 84; Pulse 81; Resp 18 S; Pulse Ox 98% on R/A; lg3 01:12 Body Mass Index 30.90 (81.65 kg, 162.56 cm) lg3 ED Course: 00:56 Patient arrived in ED. ja2 01:16 Triage completed. lg3 01:16 Arm band placed on Patient placed in an exam room, on a stretcher, on pulse oximetry. lg3 01:37 Isabella Rosenbaum, JORJE is Primary Nurse. lg3 01:47 Mandeep Zimmerman MD is Attending Physician. christen 01:48 Inserted saline lock: 20 gauge in right antecubital area, using aseptic technique. vc1 Blood collected. 01:49 CBC with Diff Sent. ll3 01:49 CMP Sent. ll3 01:49 Lipase Sent. ll3 02:05 Patient has correct armband on for positive identification. Placed in gown. Bed in low lg3 position. Call light in reach. Side rails up X 1. Client placed on continuous cardiac and pulse oximetry monitoring. NIBP monitoring applied. Door closed. Noise minimized. Warm blanket given. Family accompanied patient. 02:43 Troponin High Sensitivity Sent. lg3 02:58 Armani River MD is Hospitalizing Provider. christen 03:15 SARS RAPID Sent. lg3 03:27 US Abdomen Limited In Process Unspecified. EDMS 03:51 No provider procedures requiring assistance completed. Patient admitted, IV remains in ll3 place. intact, No redness/swelling at site. Administered Medications: 01:42 CANCELLED (Other Intervention Used): Zofran (Ondansetron) 2 mg IVP once; over 2 minutes lg3 01:49 Drug: Zofran (Ondansetron) 4 mg Route: IVP; Site: right antecubital; ll3 02:41 Follow up: Response: No adverse reaction; Marked relief of symptoms lg3 02:04 Drug: NS 0.9% 1000 ml Route: IV; Rate: 1 bolus; Site: right antecubital; lg3 03:46 Follow up: Response: No adverse reaction; IV Status: Completed infusion; IV Intake: lg3 1000ml 02:04 Drug: fentaNYL (PF) 50 mcg Route: IVP; Site: right antecubital; lg3 02:41 Follow up: Response: No adverse reaction; Marked relief of symptoms; RASS: Alert and lg3 Calm (0) 02:55 Drug: Zofran (Ondansetron) 4 mg Route: IVP; Site: right antecubital; lg3 03:07 Follow up: Response: No adverse reaction; Marked relief of symptoms lg3 03:03 Drug: Pepcid (famotidine) 20 mg Route: IVP; Site: right antecubital; lg3 03:07 Follow up: Response: No adverse reaction; Marked relief of symptoms lg3 03:45 Drug: Zosyn (piperacillin-tazobactam) 3.375 grams Route: IVPB; Infused Over: 60 mins; lg3 Site: right antecubital; 03:55 Follow up: Response: No adverse reaction; IV Status: Infusion continued upon admission ll3 03:45 Drug: Phenergan (promethazine) 25 mg Route: IM; Site: right deltoid; lg3 03:55 Follow up: Response: No adverse reaction ll3 Medication: 03:54 VIS not applicable for this client. ll3 Intake: 03:46 IV: 1000ml; Total: 1000ml. lg3 Outcome: 03:00 Decision to Hospitalize by Provider. christen 03:54 Admitted to Med/surg accompanied by hola, via wheelchair, room 402, Report called to [facility] Da 03:54 Condition: stable 03:54 Instructed on the need for admit, Demonstrated understanding of instructions. 04:39 Patient left the ED. lg3 Signatures: Dispatcher [employer] EDMandeep Dorantes MD MD cha Gibson, Lacie RN RN lg3 Joselyn Hairston Lynsea, RN RN ll3 Prema Aviles RN RN vc1
--- NOTE | 2022-01-17 03:00 | EDPHYS ---
Physician Documentation [facility] Name: Aby Stout Age: 46 yrs Sex: Female : 1975 Arrival Date: 01/17/2022 Time: 00:56 Bed 14 Private MD: LUZ MARIA Physician Mandeep Zimmerman HPI: 01/17 02:53 This 46 yrs old Female presents to ER via Ambulatory with complaints of christen Abdominal Pain, Vomiting. 02:53 The patient presents to the emergency department with nausea, vomiting, that is christen intermittent. Onset: The symptoms/episode began/occurred 1 day(s) ago. Possible causes: unknown. The symptoms are aggravated by food , The symptoms are alleviated by nothing. Associated signs and symptoms: Pertinent positives: abdominal pain, belching, nausea. Severity of symptoms: At their worst the symptoms were mild moderate in the emergency department the symptoms are unchanged. The patient has experienced similar episodes in the past, several times. 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 - Social history:: Smoking status: Patient reports the use of cigarette tobacco products, smokes one pack cigarettes per day. ROS: 02:55 Constitutional: Negative for fever, chills, and weight loss, Eyes: Negative for injury, christen pain, redness, and discharge, ENT: Negative for injury, pain, and discharge, Neck: Negative for injury, pain, and swelling, Cardiovascular: Negative for chest pain, palpitations, and edema, Respiratory: Negative for shortness of breath, cough, wheezing, and pleuritic chest pain, Back: Negative for injury and pain, : Negative for injury, bleeding, discharge, and swelling, MS/Extremity: Negative for injury and deformity, Skin: Negative for injury, rash, and discoloration, Neuro: Negative for headache, weakness, numbness, tingling, and seizure, Psych: Negative for depression, anxiety, suicide ideation, homicidal ideation, and hallucinations, Allergy/Immunology: Negative for hives, rash, and allergies, Endocrine: Negative for neck swelling, polydipsia, polyuria, polyphagia, and marked weight changes, Hematologic/Lymphatic: Negative for swollen nodes, abnormal bleeding, and unusual bruising. 02:55 Abdomen/GI: Positive for abdominal pain, nausea and vomiting, of the epigastric area and right upper quadrant. Exam: 02:55 Constitutional: This is a well developed, well nourished patient who is awake, alert, christen and in no acute distress. Head/Face: Normocephalic, atraumatic. Eyes: Pupils equal round and reactive to light, extra-ocular motions intact. Lids and lashes normal. Conjunctiva and sclera are non-icteric and not injected. Cornea within normal limits. Periorbital areas with no swelling, redness, or edema. ENT: Nares patent. No nasal discharge, no septal abnormalities noted. Tympanic membranes are normal and external auditory canals are clear. Oropharynx with no redness, swelling, or masses, exudates, or evidence of obstruction, uvula midline. Mucous membranes moist. Neck: Trachea midline, no thyromegaly or masses palpated, and no cervical lymphadenopathy. Supple, full range of motion without nuchal rigidity, or vertebral point tenderness. No Meningismus. Chest/axilla: Normal chest wall appearance and motion. Nontender with no deformity. No lesions are appreciated. Cardiovascular: Regular rate and rhythm with a normal S1 and S2. No gallops, murmurs, or rubs. Normal PMI, no JVD. No pulse deficits. Respiratory: Lungs have equal breath sounds bilaterally, clear to auscultation and percussion. No rales, rhonchi or wheezes noted. No increased work of breathing, no retractions or nasal flaring. Back: No spinal tenderness. No costovertebral tenderness. Full range of motion. Skin: Warm, dry with normal turgor. Normal color with no rashes, no lesions, and no evidence of cellulitis. MS/ Extremity: Pulses equal, no cyanosis. Neurovascular intact. Full, normal range of motion. Neuro: Awake and alert, GCS 15, oriented to person, place, time, and situation. Cranial nerves II-XII grossly intact. Motor strength 5/5 in all extremities. Sensory grossly intact. Cerebellar exam normal. Normal gait. Psych: Awake, alert, with orientation to person, place and time. Behavior, mood, and affect are within normal limits. 02:55 Abdomen/GI: Inspection: abdomen appears normal, Bowel sounds: normal, Palpation: mild abdominal tenderness, in the epigastric area and right upper quadrant, Liver: no appreciated palpable abnormalities, Hernia: not appreciated. Vital Signs: 01:12 BP 162 / 86; Pulse 73; Resp 17; Temp 97.8(O); Pulse Ox 97% on R/A; Weight 81.65 kg (R); lg3 Height 5 ft. 4 in. (162.56 cm); Pain 10/10; 03:47 BP 158 / 84; Pulse 81; Resp 18 S; Pulse Ox 98% on R/A; lg3 01:12 Body Mass Index 30.90 (81.65 kg, 162.56 cm) lg3 MDM: 01:47 Patient medically screened. christen 02:57 Differential diagnosis: Nonspecific abd pain, gastritis, cholecystitis, pancreatitis, christen viral gastroenteritis, gastroenteritis, cholecystitis, Cholelithiasis. Data reviewed: vital signs, nurses notes, lab test result(s), EKG, radiologic studies, ultrasound. Data interpreted: cafeteria monitor: rate is 73 beats/min, rhythm is regular, Pulse oximetry: on room air is 97 %. Test interpretation: by ED physician or midlevel provider: ECG, plain radiologic studies. Counseling: I had a detailed discussion with the patient and/or guardian regarding: the historical points, exam findings, and any diagnostic results supporting the discharge/admit diagnosis, lab results, radiology results, the need for further work-up and treatment in the hospital. 01/17 01:08 Order name: CBC with Diff; Complete Time: 02:40 cp 01/17 01:08 Order name: CMP; Complete Time: 02:40 cp 01/17 01:08 Order name: Lipase; Complete Time: 02:40 cp 01/17 01:08 Order name: Urine Microscopic Only cp 01/17 02:40 Order name: Troponin High Sensitivity; Complete Time: 03:07 christen 01/17 02:43 Order name: SARS RAPID; Complete Time: 03:58 christen 01/17 02:42 Order name: US Abdomen Limited [facility] 01/17 01:08 Order name: IV Saline Lock; Complete Time: 01:49 cp 01/17 01:08 Order name: Labs collected and sent; Complete Time: 01:49 cp 01/17 02:40 Order name: EKG; Complete Time: 02:41 christen 01/17 02:40 Order name: EKG - Nurse/Tech christen Administered Medications: 01:42 CANCELLED (Other Intervention Used): Zofran (Ondansetron) 2 mg IVP once; over 2 minutes lg3 01:49 Drug: Zofran (Ondansetron) 4 mg Route: IVP; Site: right antecubital; ll3 02:41 Follow up: Response: No adverse reaction; Marked relief of symptoms lg3 02:04 Drug: NS 0.9% 1000 ml Route: IV; Rate: 1 bolus; Site: right antecubital; lg3 03:46 Follow up: Response: No adverse reaction; IV Status: Completed infusion; IV Intake: lg3 1000ml 02:04 Drug: fentaNYL (PF) 50 mcg Route: IVP; Site: right antecubital; lg3 02:41 Follow up: Response: No adverse reaction; Marked relief of symptoms; RASS: Alert and lg3 Calm (0) 02:55 Drug: Zofran (Ondansetron) 4 mg Route: IVP; Site: right antecubital; lg3 03:07 Follow up: Response: No adverse reaction; Marked relief of symptoms lg3 03:03 Drug: Pepcid (famotidine) 20 mg Route: IVP; Site: right antecubital; lg3 03:07 Follow up: Response: No adverse reaction; Marked relief of symptoms lg3 03:45 Drug: Zosyn (piperacillin-tazobactam) 3.375 grams Route: IVPB; Infused Over: 60 mins; lg3 Site: right antecubital; 03:55 Follow up: Response: No adverse reaction; IV Status: Infusion continued upon admission ll3 03:45 Drug: Phenergan (promethazine) 25 mg Route: IM; Site: right deltoid; lg3 03:55 Follow up: Response: No adverse reaction ll3 Disposition Summary: 01/17/22 03:00 Hospitalization Ordered Hospitalization Status: Observation christen Provider: Armani River cha Location: Telemetry/MedSurg (observation) christen Condition: Fair christen Problem: new christen Symptoms: have improved christen Bed/Room Type: Standard christen Room Assignment: 402(01/17/22 03:48) cg Diagnosis - Vomiting christen - Epigastric abdominal tenderness christen - COPD/ Chronic obstructive pulmonary disease, unspecified christen - Cholecystitis, unspecified christen - Elevated white blood cell count christen Forms: - Medication Reconciliation Form christen - SBAR form christen Signatures: Dispatcher [employer] EDMandeep Dorantes MD MD cha Page, Corey, PA PA cp Garcia, Cindy, RN RN Isabella Schmitt RN RN lg3 Curtis Gallardo RN RN 3 Sallie Alvarez PA-C PA-C sb4 Corrections: (The following items were deleted from the chart) 01:42 01:42 Zofran (Ondansetron) 2 mg IVP once; over 2 minutes ordered. lg3 lg3 03:48 03:00 christen cg
[2022-01-17] MEDS ORDERED: PROMETHAZINE INJ 25 MG/ML AMP ONE (03:41)
--- NOTE | 2022-01-17 03:52 | P.HP ---
Certification for Inpatient Patient admitted to: Inpatient With expected LOS: >2 Midnights Patient will require the following post-hospital care: None Practitioner: I am a practitioner with admitting privileges, knowledge of patient current condition, hospital course, and medical plan of care. Services: Services provided to patient in accordance with Admission requirements found in Title 42 Section 412.3 of the Code of Federal Regulations Patient History Date of Service: 01/17/22 Reason for admission: Cholelithiasis, Intractable Abdominal Pain History of Present Illness: Patient is a 46-year-old female with history of hypertension, anxiety, and COPD who presented to the emergency department for abdominal pain and vomiting. She was admitted here 5 days ago for the same symptoms, diagnosed with cholelithiasis and discharged with cipro and flagyl and instructed to follow up with GI and general surgery. Abdominal US today showing simple cholelithiasis with no evidence of biliary duct dilation or gallbladder wall thickening. Labs are significant for WBC 14.3, AST 83, ALT 88, alk phos 206. Liver enzymes bumped from previous admission. Patient still actively vomiting despite antiemetics. Dr. Juarez was notified and has agreed to consult. Patient is admitted for further management. Allergies No Known Drug Allergies Allergy (Verified 08/22/18 07:36) Unknown Home Medications: atenoloL [Tenormin*] 50 mg PO [id number] 08/20/18 Ciprofloxacin HCl [Cipro] 500 mg PO BID 12 Days #24 tab 01/11/22 Codeine/APAP [Tylenol W/Codeine #3 tab] 1 tab PO Q8HP PRN #10 tab 01/11/22 metroNIDAZOLE [Flagyl] 500 mg PO Q8H 12 Days #36 tab 01/11/22 - Past Medical/Surgical History -: Hypertension -: Anxiety -: COPD -: Bladder sling -: Tubal ligation Psychosocial/ Personal History: Lives at home with family - Family History Mother -: Diabetes - Social History Smoking Status: Current every day smoker Alcohol use: No CD- Drugs: No Caffeine use: No Place of Residence: Home Review of Systems Gastrointestinal: Nausea, Vomiting, Abdominal Pain Physical Examination - Physical Exam General: Alert, In no apparent distress HEENT: Atraumatic, PERRLA, EOMI, Sclerae nonicteric Neck: Supple, 2+ carotid pulse no bruit, No LAD, Without JVD or thyroid abnormality Respiratory: Clear to auscultation bilaterally, Normal air movement Cardiovascular: Regular rate/rhythm, Normal S1 S2 Gastrointestinal: Normal bowel sounds, No tenderness Musculoskeletal: No tenderness Integumentary: No rashes Neurological: Normal speech, Normal strength at 5/5 x4 extr, Normal tone, Normal affect - Studies Laboratory Data (last 24 hrs) 01/17/22 01:49: Sodium 137, Potassium 3.9, BUN 9, Creatinine 0.78, Glucose 176 H, Total Bilirubin 0.9, AST 83 H, ALT 88 H, Alkaline Phosphatase 206 H, Lipase 66 L 01/17/22 01:49: WBC 14.30 H, Hgb 14.6, Hct 44.4, Plt Count 326 Assessment and Plan - Problems (Diagnosis) (1) Cholelithiasis Current Visit: Yes Status: Acute Qualifiers: Cholelithiasis location: gallbladder Cholecystitis presence: without cholecystitis Biliary obstruction: without biliary obstruction Qualified Code(s): K80.20 - Calculus of gallbladder without cholecystitis without obstruction (2) Intractable abdominal pain Current Visit: Yes Status: Acute (3) Nausea and vomiting Current Visit: Yes Status: Acute Qualifiers: Vomiting type: unspecified Qualified Code(s): R11.2 - Nausea with vomiting, unspecified (4) Hypertension Current Visit: Yes Status: Chronic Qualifiers: Hypertension type: primary hypertension Qualified Code(s): I10 - Essential (primary) hypertension (5) COPD (chronic obstructive pulmonary disease) Current Visit: Yes Status: Chronic Qualifiers: COPD type: unspecified COPD Qualified Code(s): J44.9 - Chronic obstructive pulmonary disease, unspecified - Plan -NPO. IV hydration. Dr. Juarez consulting, possible cholecystectomy -Continue zosyn -PRN pain medications and antiemetics -Counseled on need for smoking cessation. Provide with NicoDerm patch. -Monitor and replete electrolytes per protocol -VTE ppx -Full Code Discharge Plan: Home Plan to discharge in: Greater than 2 days - Advance Directives Does patient have a Living Will: No Does patient have a Durable POA for Healthcare: No - Code Status/Comfort Care Code Status Assessed: Yes (Full) Critical Care: No Time Spent Managing Pts Care (In Minutes): 50
[2022-01-17 03:53] LABS: SARS-CoV-2 Antigen Rapid Res Negative (Negative)
[2022-01-17] MEDS ORDERED: ACETAMINOPHEN 500 MG TAB PO PRN (04:48)
[2022-01-17] MEDS ORDERED: PROMETHAZINE INJ 25 MG/ML AMP IV PRN (04:48)
[2022-01-17] MEDS: NA CHLORIDE 0.9% 1,000 ML IV SCH ×2 (05:05→21:39)
[2022-01-17] MEDS: MORPHINE 4 MG/ML SYR IV PRN ×5 (05:10→21:39)
[2022-01-17 06:21] VITALS: BMI 32.1
[2022-01-17] MEDS: PIPER TAZO 3.375 GM in NA CHLORIDE 0.9% 100 ML IV SCH ×2 (08:08→17:32)
--- NOTE | 2022-01-17 12:18 | RAD REPORT ---
EXAM DESCRIPTION: MRI - Cholangiogram - 01/17/2022 12:03 pm CLINICAL HISTORY: Elevated liver enzymes, cholelithiasis COMPARISON: Ultrasound 01/17/2022, CT study 01/11/2022 TECHNIQUE: Axial and coronal heavily T2 weighted sequences were obtained. Coronal T2 HASTE fat satur ation static and coronal multiplane reconstruction imaging generated and reviewed. Horizontal and prince tical axis rotational views obtained using maximum intensity projection (MIP) protocol. FINDINGS: Multiple moderate to large sized gallstones are present within the lumen of the gallbladde r. Gallbladder wall does not appear thickened or edematous on this examination. No intrahepatic or extrahepatic biliary tree dilatation identified. Exam as some motion limitation. O n multiple image acquisitions there is a small 3 mm sized signal void in the distal common bile duct. This cannot be fully cleared on the stacked coronal T2 3D sequence. A small stone in the common bile duct in the head of the pancreas is not excluded. Pancreatic duct is not dilated. IMPRESSION: No intrahepatic or extrahepatic biliary tree dilatation. A small 3 mm sized signal void in the distal common bile duct near the ampulla is suspected to be a s mall duct stone.
[2022-01-17] MEDS: ONDANSETRON 4 MG/2 ML VIAL IV PRN ×3 (13:32→21:40)
--- NOTE | 2022-01-17 23:07 | CON ---
Date of Consultation: 01/17/2022 Reason For Consultation: Intractable abdominal pain, epigastric and right upper quadrant pain. Indication: This is the case of a 46-year-old patient who came to the ER with nausea, bloating and a bdominal pain, mainly in upper abdomen. Apparently, patient came to the ER a few days ago, but she w as sent home and advised to follow up with the primary doctor. She did not do that or follow any gas troenterologist. So she came last night once again, after eating a greasy meal. Patient was diagnos ed with acute cholecystitis, symptomatic cholelithiasis with mild increase in liver function tests, a dmitted to the hospital and a surgical consult was obtained. She denies any dysuria, hematemesis, he matochezia, or melena. Denies any recent traveling out of the country. Denies any family member sic k at home. Review of Systems: Ten points otherwise unremarkable. Past Medical History: None. Allergies: NONE. Social History: She does not smoke. She does not drink alcohol. Family History: Noncontributory. Physical Examination: General: The patient is awake and alert. Eyes: Pupils are equal and reactive. Anicteric. Neck: Supple. Chest: Clear. Abdomen: Epigastric and right upper quadrant tenderness. The rest of the abdomen is soft and depres sible. Breasts: Deferred. Pelvic: Deferred. Rectal: Deferred. Extremities: Good capillary refill. Laboratory Data: Blood work was reviewed showing increased liver function tests, AST, ALT, alkaline phosphate. The imaging was reviewed showing once again cholelithiasis. Assessment: Symptomatic cholelithiasis, acute cholecystitis and also with increased LFT so we are go ing to order an MRCP. We explained to her the options of laparoscopic possible open cholecystectomy with benefits, alternatives, and risks including, but not limited to infection, bleeding, damage to a djacent structures, anesthesia complication, choledocholithiasis, bile leak, pancreatitis, myocardial infarction and even . She also understands this may not relieve any symptoms. She might need more than one surgical intervention. We are going to obtain MRI and MRCP and then if no stone procee d with surgery. If there is a kidney stone, then we might have to get a manager of engineering to evalua te the patient. BRYAN/MILA Voice ID: [id number] Report ID: [id number]
[2022-01-18] MEDS: PIPER TAZO 3.375 GM in NA CHLORIDE 0.9% 100 ML IV SCH ×3 (01:24→16:51)
[2022-01-18] MEDS: MORPHINE 4 MG/ML SYR IV PRN ×5 (04:36→20:53)
[2022-01-18] MEDS: ONDANSETRON 4 MG/2 ML VIAL IV PRN ×2 (04:36→08:48)
[2022-01-18 05:53] LABS: Absolute Lymphocytes (CBC) 1.5 K/uL (0.7-4.9); Hematocrit 36.3 % (36.0-45.0); Lymphocytes % 30.2 % (15.3-44.8); MPV 10.1 fL (7.6-11.3); RBC Red Blood Cell Count 4.22 M/uL (3.86-4.86)
[2022-01-18 06:14] LABS: Albumin 2.6 g/dL (3.4-5.0); Bilirubin Total 2.7 mg/dL (0.2-1.0); Magnesium 2.2 mg/dL (1.8-2.4); Phosphorus 3.1 mg/dL (2.5-4.9); Potassium 3.4 mmol/L (3.5-5.1); Protein, Total 5.7 g/dL (6.4-8.2)
[2022-01-18 06:25] LABS: Protime INR 1.02
[2022-01-18] MEDS: atenoloL 50 MG TAB PO SCH (07:11)
[2022-01-18] MEDS ORDERED: POTASSIUM CL SA 10 MEQ TAB PO ONE (09:00)
[2022-01-18] MEDS: NA CHLORIDE 0.9% 1,000 ML IV SCH ×2 (10:35→20:54)
--- NOTE | 2022-01-18 11:57 | RAD REPORT ---
EXAM DESCRIPTION: US - Abdomen Exam Limited - 01/17/2022 3:26 am CLINICAL HISTORY: 46 years Female, ABD PAIN COMPARISON: Limited abdominal ultrasound January 11, 2022 TECHNIQUE: Sonographic imaging of the gallbladder was performed. FINDINGS: Shadowing stones in the gallbladder demonstrated. Gallbladder wall measures 2.8 mm in thic kness and is normal. Common bile duct measures 3.5 mm in width and is normal. There is increased echogenicity in the visualized liver suggesting fatty changes. IMPRESSION: Simple cholelithiasis. No evidence of biliary duct dilatation. Electronically signed by: Anurag Bardales MD 01/17/2022 3:47 AM CDT Due to temporary technical issues with the PACS/Fluency reporting system, reports are being signed by the in house radiologists without review as a courtesy to insure prompt reporting. The interpreting radiologist is fully responsible for the content of the report.
--- NOTE | 2022-01-18 17:20 | PN ---
Date of Progress Note: 01/18/2022 Diagnosis: Acute cholecystitis, symptomatic cholelithiasis. Also choledocholithiasis. Subjective: Patient is doing better. No Bridges sign at this moment. The MRCP done last night shows a stone in the common bile duct. ERCP was requested, but apparently today the hospital cannot provi de that service, even though the telecommunications manager is available. In that case, we notified that to the primary doctor. The surgical case was postponed. The ERCP was postponed and the patient is to b e transferred to another institution to remove the stone from the common bile duct and then she will consider the cholecystectomy. The patient was explained the process and she agreed with the plan. BRYAN/MILA Voice ID: [id number] Report ID: [id number]
[2022-01-18 17:56] LABS: Specific Gravity 1.024 (1.005-1.030); Urine Bacteria <20 /HPF (<20); Urine Blood Negative (Negative); Urine Clarity Clear (Clear); Urine Color Yellow (Yellow); Urine Glucose NEGATIVE (Negative); Urine Mucus Slight /HPF (None Seen); Urine Protein NEGATIVE (Negative); Urine RBC <5 /HPF (None Seen); Urine Urobilinogen Normal (Normal)
[2022-01-18 18:06] LABS: Urine Bilirubin NEGATIVE (Negative)
[2022-01-19] MEDS: MORPHINE 4 MG/ML SYR IV PRN ×5 (00:57→19:33)
[2022-01-19] MEDS: PIPER TAZO 3.375 GM in NA CHLORIDE 0.9% 100 ML IV SCH ×3 (00:57→16:25)
[2022-01-19 06:07] LABS: Hematocrit 34.9 % (36.0-45.0); MCV 86.2 fL (80-100); MPV 9.9 fL (7.6-11.3); RBC Red Blood Cell Count 4.05 M/uL (3.86-4.86)
[2022-01-19 06:08] LABS: Lymphocytes % 39.6 % (15.3-44.8)
[2022-01-19 06:27] LABS: Albumin 2.7 g/dL (3.4-5.0); Bilirubin Total 1.4 mg/dL (0.2-1.0); Magnesium 2.2 mg/dL (1.8-2.4); Phosphorus 2.8 mg/dL (2.5-4.9); Potassium 3.7 mmol/L (3.5-5.1); Protein, Total 5.6 g/dL (6.4-8.2)
[2022-01-19] MEDS: atenoloL 50 MG TAB PO SCH (06:49)
[2022-01-19] MEDS ORDERED: POTASSIUM CL SA 10 MEQ TAB PO ONE (09:00)
[2022-01-19 09:58] VITALS: O2SAT 93
[2022-01-19] MEDS: NA CHLORIDE 0.9% 1,000 ML IV SCH (12:20)
[2022-01-19 19:56] VITALS: BP 120/83; TEMP 97.1
== END 2022-01-19 23:50 | disposition short-term general hospital (02) | DRG 446 ==
LOC: ER 00:52 → 4TH 03:36
PROVIDERS: ADMIT Hospitalist; ATTEND Hospitalist
DX: K80.62 Calculus of gallbladder and bile duct with acute cholecystitis without obstruction (principal); R11.2 Nausea with vomiting, unspecified; J44.9 Chronic obstructive pulmonary disease, unspecified; I10 Essential (primary) hypertension; F41.9 Anxiety disorder, unspecified; F17.210 Nicotine dependence, cigarettes, uncomplicated; Z71.6 Tobacco abuse counseling; Z88.3 Allergy status to other anti-infective agents; Z28.310 Unvaccinated for COVID-19; Z98.51 Tubal ligation status; Z83.3 Family history of diabetes mellitus
CPT/HCPCS: 36415; 74181; 76705; 80053; 81001; 83690; 83735; 84100; 84132; 84484; 85025; 85610; 85730; 87811; 96361; 96372; 96374; 96375; 99285; J2405; J2543; J2550; J3010; J7030; J7050

== ENCOUNTER 2022-03-05 23:10 | Emergency (ER) | payer SELFPAY ==
--- OUTSIDE RECORDS SUMMARY | 2022-03-05 23:15 | XMS REPORT | Continuity of Care Document ---
:1975 Author Organization [facility] t Address [address] [place] [address] Care Team Providers Name Role Phone ERIN FUENTES Attending Clinician Unavailable XU ROSEN Attending Clinician Unavailable Erin Fuentes MD Attending Clinician Corby Mac MD Attending Clinician [phone] Silas SANTOS, Xu Muñiz Attending Clinician [phone] Maricel SANTOS, Sergio Lee Attending Clinician Shayan SANTOS, Heladio Attending Clinician Baylee Reece Attending Clinician Lena Davenport MD Attending Clinician Jenny Rubi MD Attending Clinician Prosper SANTOS, Amari Angulo Attending Clinician CORBY MAC Admitting Clinician Unavailable Payers Payer Name Policy Type Policy Number Effective Date Expiration Date S ource Problems Condition Condition Condition Status Onset Resolution Last Treating Co mments Source Name Details Category Date Date Treatment Clinician Date [place]oledocho Choledocho Disease Active 2021-[address] lithiasis lithiasis 03-22 [facility] 00:00: Medical 00 Center Allergies, Adverse Reactions, Alerts Allergy Allergy Status Severity Reaction(s) Onset Inactive Treating Comm ents Source Name Type Date Date Clinician NO KNOWN Allergy Active [facility] Social History Social Habit Start Date Stop Date Quantity Comments Source Tobacco use and 2022-01-20 2022-01-20 Never used Janet rakan exposure 00:00:00 00:00:00 Medical Center Sex Assigned At [birth year] [facility] 00:00:00 00:00:00 [facility] Center Smoking Status Start Date Stop Date Source Current every day smoker 2022-01-20 00:00:00 [facility] Medications Ordered Filled Start Stop Current Ordering Indication Dosage Frequency Signature Comments Components Source Medication Medication Date Date Medication? Clinician (SIG) Name Name traMADoL 2021-03 50mg Take [address] [facility] [address] (ULTRAM) 50 03-24-16 tablet (50 L [facility] mg tablet 00:00: 23:59 mg total) Me dical 00 :00 by mouth Center every 6 (six) hours as needed for Pain for up to 10 days. Max Daily Amount: 200 mg acetaminoph 2021-03 Yes 1{tbl} Take [address] en-codeine 0-27 tablet by Mustapha layne (TYLENOL 00:00: mouth Medical #3) 300-30 00 every 8 Center mg per (eight) tablet hours as needed. atenoloL Yes 50mg QD Take [address] (TENORMIN) 6-28 by [facility] 50 MG 00:00: daily. Medical tablet 00 Center ALPRAZolam Yes .25mg QD Take 0.[address] (XANAX) 6-28 mg by [facility] 0.25 MG 00:00: mouth Medical tablet 00 daily. [place] sertraline Yes 25mg Take [address] (ZOLOFT) 25 3-03 by mouth. Karin es MG tablet 00:00: Medical 00 Center Vital Signs Vital Name Observation Time Observation Value Comments Source HEIGHT 2022-01-20 02:06:00 162.6 cm WEIGHT 2022-01-20 02:06:00 81.647 kg HEIGHT 2022-01-20 02:06:00 162.6 cm WEIGHT 2022-01-20 02:06:00 81.647 kg HEIGHT 2022-01-20 02:06:00 162.6 cm WEIGHT 2022-01-20 02:06:00 81.647 kg Systolic blood 2022-01-22 11:10:00 117 mm[Hg] [facility] Diastolic blood 2022-01-22 11:10:00 70 mm[Hg] [facility] Heart rate 2022-01-22 11:10:00 68 /min [facility] Body temperature 2022-01-22 11:10:00 36.72 Agnes [facility] Respiratory rate 2022-01-22 11:10:00 16 /min [facility] Oxygen saturation in 2022-01-22 11:10:00 96 /min [facility] Arterial blood by Medical Ce nter Pulse oximetry Body height 2022-01-20 02:06:00 162.6 cm [facility] Body weight 2022-01-20 02:06:00 81.647 kg [facility] BMI 2022-01-20 02:06:00 30.90 kg/m2 [facility] Procedures Procedure Date / Time Performing Clinician Source Performed PREPARE RBC 2022-01-[address] [facility] 15:15:00 [facility] CBC W/PLT COUNT & AUTO 2022-01-[address] [facility] DIFFERENTIAL 04:02:00 [facility] COMPREHENSIVE METABOLIC PANEL 2022-01-[address] [facility] 04:02:00 [facility] CBC W/PLT COUNT & AUTO 2022-01-[address] [facility] DIFFERENTIAL 04:02:00 [facility] TISSUE EXAM 2022-01-[address] [facility] 12:51:00 [facility] CHOLECYSTECTOMY, LAPAROSCOPIC 2022-01-[address] [facility] 11:47:00 [facility] ABORH, MANUAL 2022-01-[address] [facility] 10:20:00 [facility] TYPE AND SCREEN, AUTOMATED 2022-01-21 [facility]ORFIRIO [facility] 09:58:00 [facility] HEMOGLOBIN A1C 2022-01-21 Brenda, Serena [facility] 03:55:00 [facility] C-REACTIVE PROTEIN 2022-01-[address] [facility] 03:55:00 [facility] D-DIMER 2022-01-[address] [facility] 03:55:00 [facility] FERRITIN 2022-01-[address] [facility] 03:55:00 [facility] LACTIC ACID, VENOUS 2022-01-[address] [facility] 03:55:00 [facility] CBC W/PLT COUNT & AUTO 2022-01-[address] [facility] DIFFERENTIAL 03:55:00 [facility] COMPREHENSIVE METABOLIC PANEL 2022-01-[address] [facility] 03:55:00 [facility] HCG, QUANTITATIVE, 2022-01-[address] [facility] 03:55:00 [facility] CBC W/PLT COUNT & AUTO 2022-01-[address] [address] [facility] DIFFERENTIAL 03:55:00 [facility] REPORT OF PROCEDURE - ENDOSCOPY 2022-01-[address] [facility] URL 19:56:44 [facility] FL ERCP 2022-01-[address] [facility] 19:50:00 [facility] PROCEDURE W/ C-ARM 2022-01-[address] 19:09:00 [facility] ENDOSCOPIC RETROGRADE 2022-01-20 [facility]ari [facility] CHOLANGIOPANCREATOGRAPHY, WITH 19:09:00 [facility] Center SPHINCTEROTOMY ENDOSCOPIC RETROGRADE 2022-01-[facility] CHOLANGIOPANCREATOGRAPHY, WITH 19:09:00 [facility] Center BALLOON SWEEP OF BILE DUCTS ENDOSCOPIC RETROGRADE 2022-01-20 Amari Cheng [facility] CHOLANGIOPANCREATOGRAPHY, WITH 19:09:00 M ical Center PANCREATIC DUCT STENT INSERTION ENDOSCOPIC RETROGRADE 2022-01-20 Amari [facility] CHOLANGIOPANCREATOGRAPHY 19:09:00 [facility] (ENDOSCOPIC RETROGRADE CHOLANGIOPANCREATOGRAPHY) SARS-COV2/RT-PCR ([facility] & REF 2022-01-[address] [facility] LABS) 05:48:00 [facility] HEPATIC FUNCTION PANEL 2022-01-20 Kastuar, Lucía [facility] 05:39:00 [facility] MAGNESIUM 2022-01-20 Kastuar, Lucía [facility] 05:39:00 Medical Center PHOSPHORUS 2022-01-20 Kastuar, Lucía [facility] 05:39:00 [facility] PROTHROMBIN TIME/INR 2022-01-20 Kastuar, Lucía [facility] 05:39:00 [facility] CBC W/PLT COUNT & AUTO 2022-01-20 Kastuar, Lucía [facility] DIFFERENTIAL 05:39:00 [facility] BASIC METABOLIC PANEL 2022-01-[address] [facility] 05:39:00 [facility] CBC W/PLT COUNT & AUTO 2022-01-20 Kastuar, Lucía [facility] DIFFERENTIAL 05:39:00 [facility] Plan of Care Planned Activity Planned Date Details Comments Source Future Scheduled 2021-11-17 INFLUENZA VACCINE (#1) [facility] 00:00:00 [code = INFLUENZA Medical Ce nter VACCINE (#1)] Future Scheduled 2021-03-[address] [facility] Test 00:00:00 (12+) [code = [facility] DEPRESSION SCREENING (12+)] Future Scheduled 2018 Lipid panel (procedure) [facility] Test 00:00:00 [code = 99122109] Medical Ce nter Future Scheduled 1994 Screening for malignant [facility] Test 00:00:00 neoplasm of cervix Medical C enter (procedure) [code = 677330154] Future Scheduled 1992 DTAP/TDAP/TD VACCINES [facility] 00:00:00 (1 - Tdap) [code = Medical C enter DTAP/TDAP/TD VACCINES (1 - Tdap)] Future Scheduled 1991-06-11 HEPATITIS C SCREENING [facility] 00:00:00 [code = HEPATITIS C Medical Center SCREENING] Future Scheduled [address] [facility] Test 00:00:00 Counseling and Medical Cente r Screening (12+) [code = Tobacco Cessation Counseling and Screening (12+)] Future Scheduled 1979-06-[address] [facility] Test 00:00:00 0-64 YRS (1 - PCV) Medical C enter [code = PNEUMOCOCCAL VACCINE 0-64 YRS (1 - PCV)] Future Scheduled 1975 COVID-19 VACCINE (#1) [facility] 00:00:00 [code = COVID-[address] VACCINE (#1)] Future Scheduled 1973 CT Colonography (combo) [facility] Test 00:00:00 [code = CT Colonography [facility] (combo)] Future Scheduled 1973 Screening for malignant [facility] Test 00:00:00 neoplasm of colon Medical Ce nter (procedure) [code = 275635689] Future Scheduled 1973 Screening for malignant [facility] Test 00:00:00 neoplasm of colon Medical Ce nter (procedure) [code = 802952485] Future Scheduled 1973 Screening for malignant [facility] Test 00:00:00 neoplasm of colon Medical Ce nter (procedure) [code = 013666304] Future Scheduled 1973 Screening for malignant [facility] Test 00:00:00 neoplasm of colon Medical Ce nter (procedure) [code = 496766436] Future Scheduled 1975 Sigmoidoscopy [code = [facility] 00:[facility]:00 Sigmoidoscopy] Medical Cente r Encounters Start End Encounter Admission Attending Care Care Encounter Source Date/Time Date/Time Type Type Clinicians Facility Department ID 2022-01-20 2022-01-22 Inpatient UR SILAS [facility] [id number] [facility] 01:57:00 15:15:00 [facility] 2022-01-20 2022-01-22 Hospital Ely Erin Ally [facility] [id number] 01:57:00 15:15:00 Encounter Corby Mac [facility] 2022-01-21 2022-01-21 Surgery Maricel [facility] [id number] 11:00:00 14:18:00 Sergio Lee [facility] 2022-01-21 2022-01-21 Anesthesia Heladio Downey [facility] [id number] [facility] 11:47:00 13:32:00 Event Baylee Bennett [facility] 2022-01-20 2022-01-20 Outpatient [facility] [id number] [facility] 01:57:00 23:59:00 ColleCassandra e 2022-01-20 2022-01-20 Anesthesia Lena Davenport [facility] [id number] 18:52:00 20:12:00 Event Jenny Rubi [facility] 2022-01-20 2022-01-20 Surgery Prosper [facility] [id number] 18:02:00 19:17:00 [facility] 2022-01-20 2022-01-20 Travel [facility] [id number] [facility] 00:[facility]00 00:[facility]00 [facility] Results Test Description Test Time Test Comments Results Result Comments Source Tissue Exam 2022-01-27 10:35:35 Test Item Value Reference Range Interpretation Comme nts Case Report (test code = 104) Surgical Pathology Report Case: [id number] Authorizing Provider: Sergio Connelly MD Collected: 01/21/2022 12:51 PM Ordering Location: [address] Received: 01/23/2022 08:22 AM Service Pathologist: Annabelle Jade MD Specimen: Gallbladder DIAGNOSIS (test code = 3220) r0cquDBsZIXyi8pxKUSauERtLkGwAoGaWqBqVo p cdWMxIHtccnRmMVxlcGljOTYwMlxhbnNpXHNwbH GyA0DphrijFBbmZD2oKG4tlFxbbBCtgSEhRDWqH iMpg4qhg862qYCrx2djDKPTdltfrVy4gYqeZ95p q6L8XxbuA01gjDYnVRN7PMXyRBOtvGInEDClLUM 4FWFszPGlF4bfYIUaKT5rbmvnTTwfBUokSIDziF U1NAFfgCGeM3HnFTKbZLlpQSHiimb0QvOvIf7ne NZovEqyCRraLTOjWOQkUAjaEQPgDjVoZ9XKDHET XCGRPJOtLIDZI7qYE8zFITSVCT7KLIzeuT0aHQN wtk0raLVxZ4vndDPtoBM7wNFpepB1uGNaLSVhm8 nquKz4ePvxq3pqJEKkou20BFY1JfAoq4Y7GZB6U ZNpALDdy0nhQOCzdKBmRjBrQkLqZvBaBygxdMOv KPVgMuUqf4fub294uDTlk2slJMFeFqP1pSMvGVJ ezECoA597GZPtYIijp5snz6PnSMGxgZOkl7H5SZ CIyogmqNm1jZkjN71fp9H1MhjqV9foIEYgBQZpY 7PbMO8sDQMeZqb4LYT0JIP2XYBdZSNlT8ImQZ9g AAUwqSWpTXm1m9ymgHjcCFGxHNJ7v7oxGTzgphP sNF3efq1bdLb7a0tivbTjNLJgUYDfbJCMFZVbO8 VlmKtiTi6waSr8fDimFijlEDV4Fng1CG9ium55w iz8uGprUJQwkcgwVjC2JKkzNRXodfazFWi5ZIqe TWHiiBI1NTLrgIRtR1OsEZSgXF0uugp3UAV8OLd mWQVuSdX8UUYzqIZaUWCeqThjGOjnm430MKZ0Ew KwWB8rI6Urt1E0fB1chUQmSZGgbSAgRkLxCYLts m4ngBUcFGgwu1PmHUQ7ylA0zWDapXKnEKYgEeI2 DYclSS3ady48DRTsWXQ8jk5cdGPmuEzmjnWjcYM mBUvcH0UeYFOvo341OVHhQ6JgNHAcm1A4xdVrTm IxBPOgwZM5uiU5XSCdBY7najzjb1blVVilVWaiN EGmpuG3rhS8DTXqaOGjM5QwiR3vFYFuAD7kejqx z6kiLUZ5XLpqVIVyIFE4OfSiSANuy1Yienb6SzF fu0TljERgSWvqJ61ou977DGHqdgPeV3dunPSmna dmcVIphhmcRNglmjD4GMMuUPmxushzXZQpZQauO 2zeYdAxWMFsrEesALgdk4UnFQRqPCNjUjDtlCJv SYQoFvp1SOEppXOjCWZuRbXxR1stdrusLpDRHKX qz0niW9liqWOCiINqN9BbKMpdvjUqPZzjTWkjQQ TpTGW4SO24CxieSXJbvn70 CPT Code(s) (test code = 3357) e0nhvGApBSJxvET9NhGwYKTqn7wsc2KqqTVp cGF rUQferTJbimIumo08qHZ6tW29FD8zDOVbDwD9LH NjklN6Rly5KHZbNAFezVDbY274s2bps1ujdhEdi ZF0cCizDLJrbujeAmG1LMnoSROwiwnfTIr6XTbu QFVruTC6BOAhvARwV9YdLPKrUC6apqu4RSQ9UDe rTFBsHlU7WLXxhNQwSTUjxPebFVxev192XJY4Aw FeEXVosjYymQdmoR2iOmCeTOI9UBQhYCppWPN6 CLINICAL HISTORY (test code = 3356) j5xymECuBXInzCV6EaJbCQHkg7pqi5V sdHBncGF qPTusyNOgjuLrrk04zSZ4xB13OJ2kWRHfTcB7QC QoypQ5Pav2ZXHpKJTdsCBiM049w4mfy7rnktTev VQ8HQGjXENgW8EaXU4tNOPeiEFgS93jiKStNQX2 PUAsMCYphUIpVYXfSMW5ILRcfXLaU6fnUUMbFJ2 zgeoyBVsmUEjoNZGzyDN8AIOzoGRfW6OeJJHqII vgALHzqyl7HsXiBm7fvPXbqVgoABdvLREuPGXfK IjdhFRmkzbctuHzMFDlMFMNTMrmt6PejzRoQDNz cn0= GROSS DESCRIPTION (test code = e6quxXEeWQMaaQBTVDTuD7tpykEeDMNpsCWo Z3B [id number]) qlolzZZqtST2ySN1vyQlzdMTjvDIsDO6SXKGeDg XvIDTcyQRjkcOcRsTsAXYysZHzqHV6KPFrWM0no cyzYXkdVSedRFHpkuX7DKUosCAwQ9FwDAArFX5a knohJVP4YThksF2lweGFYxzsOi7clBQnhHhdAsB rNgAxUXIuDYTiFKQnbVupQBVhMRp9tC6ARnxrVH N4PVXYKjemDTKsIY3Zr9zuNJLapDBzZSX3WNmij FXkJJIxBEKjGUz4HFGoDCgusRItUW7ohRtcZokg dGuop8HmdCFfLXzrAFSqXTBpAZueTIUuNH2LPeL eEQK9GrUpAoEuDPz4DLx9FB1WBsVrWDEqJBy4Sv AnEFKeQRk3RNihSZ4ICQVdPAbcPTi2DlO2BHRfM TNhIJQkPjFcBZPwXTNmZLzgISslbGQpTZ9eqIru cWFkpyRZCvATAKenOzraFNCmac6tdIOlFX1XARU lyASXUML4XK5rNQPPEojoeXRmYWFzeQfgJQcfeO 5cCT0GFTb5saEgJBYyFmQmBiXuLKf9WTHmjS8qF p7neBLsyR2pzQKhUAddFXM5eMOeFBQeBWIcNILs KK10H2CtnmUgJFyzDBLiGPHpbN6fDC96gDYjevT bkiMxZhssxFhzlFEdMSUcRoMnroUmSVXxXMM9TW YcTMN9DJZyCNIwpOShiqUcY4FcT1FsyDCiIAUdN QQvl4m4lZCkJJTzKcAroAArcsAkMI3sqLgpYlvv XN4jAJEsLYufPMHpBK3slBDdSKI6hKJtgZLpAMA 0z6EkQuGrqRQ0PkGdVAjpSBLfhv6nZTHfmvB8MD szm1jdI0DaII1fBCHcn371vJLvrzSxbDjfKHXka WujXfYqY8FmwFxyskezGdIqEPSpTNynUOJavECh eGltYXRlbHkgMyBtTCBvZiBncmVlbiwgdHVyYml xKTBwdQWpWT3tTVRgAh52ITnzRB50WDvuTP1pMF TpBFVrE1JrI6J7NSQaHdJ6MDtyx6vjQ8CgWC5aJ SVrz4TazCO0JTCgL2CpT9JelF4rGLDsLMXkHYVf KBMvBEgymTwvFDmqQNacNJH5rCHoqR4oyZllPUY 1m3SwLmTqnYA9GpQzTMobYU85R10nSDRmnqF5WJ 1jK1IuOG0yRE5qDMMtWYFfO5MeRTMcJL9oFOIaQ BO7IIgyWO4rXOZ5rsKoPJUhZxRbzCA7xXlkgw4l KURdcNGwy3MdnRG0hSNgTTEoQ6Ckg15bMUQrGNS qvSKpnLY3DVLjpK2qGYUwNUEqXStdkNblkBlmSC arq1GeSFI1u8GkNbLlgKS0ZD0ctqhwaoGkbwMEL X5npZjhCJTsqDvcWZMQgBervhSEzjk6GUbtXVAo IFBBLCBIVCAoQVNDUCkNClxwbGFpblxlcGljTmV eaZUhOsTnzVyrsM96REBfsWYgWHP4QY4gNDIqux zoEGTeIWWfZIQ2AHrhlQ33cNMvMEStXWZyuDHws L0NUFQgEMN6WBsiwE67iFWiFC3EIEEwNOO0CZLa vIQlORI2MP9ynF7SpZ== MICROSCOPIC DESCRIPTION (test code = b5jizJXxZXBsaIK5CsOfSUCep3kpt0 [facility] 337) qKRzsbWJxjbBmor24cXN4rC44SA5uQJGaWuS0SG FnurQ3Xvq7FEMmRXKmwXKjZ746v9apq8xjbhJbq VQ0xNkhFJJqzcfdLhD3XNxoOHElothyGJi9RTfj MJQnwGW2KPCddONxZ4OjHASpSB6fjso2CAW1TOe sKOEyBfC3FSIbkZRbEZNmsWggHWgkt023WSO8Vk CfHXFiwkAspJlgpS4yFbZrTWFXGKVrx3YxINCtp GFyfQ== Gross assessment was performed at (test [facility] C enter, code = 2777) Department of Pathology, [address] [place] [address], Technical component was performed at [facility] er, (test code = 2778) Department of Pathology, [address] [place] [address], Professional component was performed at [facility] C enter, (test code = 2779) Department of Pathology, [address] [place] [address], [facility] [id number] 10:35:35Surgical Pathology Report Case: [id number] Authorizing Provider: Sergio Connelly MD Collected: 01/21/2022 12:51 PM Ordering Location: [address] Received: 01/23/2022 08:22 AM Service Pathologist: Annabelle Jade MD Specimen: Gallbladder GALLBLADDER, CHOLECYSTECTOMYChronic cholecystitis with cholelithiasis Signing Pathologist Direct Phone Line: [phone] signed by Annabelle Jade MD on 01/27/2022 at 10:35 [id number]. Gallbladder.Received in formalin labeled with thepatient's name, accession number and "gallbladder" is a 6.4 x 3.0 x 1.5 cm intact gallbladder with a0.2 cm in length by 0.2 cm in diameter attached cystic duct. The serosa is yellow-green, smooth and hyperemic. Sectioning reveals approximately 3 mL of green, turbid bile and a 3.7 x 1.5 x 1.1 cm aggregate of yellow-green, bosselated calculi. There are calculi lodged within the cystic duct. The mucosais garcia-green and trabeculated. The wall measures 0.3 cm thick. Zipper Slide Attacher sections are submittedin A1-A2, with the inked cystic duct margin in A1.MARY Lambert, HT (ASCP)PerformedBaylor Mountains Community Hospital, Department of Pathology, [address] [place] [address], [facility], Department of Pathology, [address] [place] [address], [facility], Department of Pathology, [address] [place] [address], [place] [id number] 15:15:00 Test Item Value Reference Range Interpretation Comments CROSSMATCH (test code = COMPATIBLE 2264) Unit ABO (test code = O Pos [id number]) UNIT NUMBER (test code = [id number] 934-0) Status (test code = 9513815) WORK IN PROGRESS Blood Bank Product (test RED BLOOD CELLS code = 2263) PRODUCT CODE (test code = V7875V89 933-2) [facility] METABOLIC [id number] 04:55:48 Test Item Value Reference Range Interpretation Comments TOTAL PROTEIN 6.9 gm/dL 6.0-8.3 Specimen moder ately (BEAKER) (test hemolyzed code = 770) ALBUMIN (BEAKER) 3.6 g/dL 3.5-5.0 Specimen mo derately (test code = 1145) hemolyzed ALKALINE 177 U/L 40-150 H PHOSPHATASE (BEAKER) (test code = 346) BILIRUBIN TOTAL 1.0 mg/dL 0.2-1.2 Specimen mod erately (BEAKER) (test hemolyzed code = 377) SODIUM (BEAKER) 137 meq/L 136-145 (test code = 381) POTASSIUM (BEAKER) 4.3 meq/L 3.5-5.1 Specimen moderately (test code = 379) hemolyzed CHLORIDE (BEAKER) 107 meq/L 98-107 (test code = 382) CO2 (BEAKER) (test 20 meq/L 22-29 L code = 355) BLOOD UREA 7 mg/dL 7-21 NITROGEN (BEAKER) (test code = 354) CREATININE 0.69 mg/dL 0.57-1.25 Specimen modera tely (BEAKER) (test hemolyzed code = 358) GLUCOSE RANDOM 181 mg/dL 70-105 H (BEAKER) (test code = 652) CALCIUM (BEAKER) 9.4 mg/dL 8.4-10.2 (test code = 697) AST (SGOT) 121 U/L 5-34 H Specimen modera tely (BEAKER) (test hemolyzed code = 353) ALT (SGPT) 196 U/L 6-55 H Specimen modera tely (BEAKER) (test hemolyzed code = 347) EGFR (BEAKER) 107 Interpretatio n of eGFR (test code = 1092) mL/min/1.[address] age Description sq m Result G1 Lisa l or high >=90 G2 Mildly decreased 60-89 G3a Mildl y to moderately 45-5 9 G3b Moderately to s everely 30-44 G4 Severl y decreased 15-29 G5 Kidney failure <15Reported eGF R is based on the CKD-EPI 2021 equation that d oes not use a race coefficientEsti mated GFR is not as accur ate as Creatinine Alexandra barber in predicting glom erular filtration rate . Estimated GFR is not appl icable for dialysis patien ts Box Packer ID - DINAH WCBC W/PLT COUNT & AUTO [id number] 04:22:55 Test Item Value Reference Range Interpretation Comments WHITE BLOOD CELL COUNT (BEAKER) 13.2 K/ L 3.5-10.5 H (test code = 775) RED BLOOD CELL COUNT (BEAKER) 4.75 M/ L 3.93-5.22 (test code = 761) HEMOGLOBIN (BEAKER) (test code = 13.3 GM/DL 11.2-15.7 410) HEMATOCRIT (BEAKER) (test code = 40.2 % 34.1-44.9 411) MEAN CORPUSCULAR VOLUME (BEAKER) 85 fL 79-95 (test code = 753) MEAN CORPUSCULAR HEMOGLOBIN 28.0 pg 25.6-32.2 (BEAKER) (test code = 751) MEAN CORPUSCULAR HEMOGLOBIN CONC 33.1 GM/DL 32.2-35.5 (BEAKER) (test code = 752) RED CELL DISTRIBUTION WIDTH 16.6 % 11.7-14.4 H (BEAKER) (test code = 412) PLATELET COUNT (BEAKER) (test 319 K/CU MM 150-450 code = 756) MEAN PLATELET VOLUME (BEAKER) 11.8 fL 9.4-12.3 (test code = 754) NUCLEATED RED BLOOD CELLS 0 /100 WBC 0-0 (BEAKER) (test code = 413) NEUTROPHILS RELATIVE PERCENT 76 % (BEAKER) (test code = 429) LYMPHOCYTES RELATIVE PERCENT 14 % (BEAKER) (test code = 430) MONOCYTES RELATIVE PERCENT 10 % (BEAKER) (test code = 431) EOSINOPHILS RELATIVE PERCENT 0 % (BEAKER) (test code = 432) BASOPHILS RELATIVE PERCENT 0 % (BEAKER) (test code = 437) NEUTROPHILS ABSOLUTE COUNT 10.05 K/ L 1.56-6.13 H (BEAKER) (test code = 670) LYMPHOCYTES ABSOLUTE COUNT 1.78 K/ L 1.18-3.74 (BEAKER) (test code = 414) MONOCYTES ABSOLUTE COUNT (BEAKER) 1.30 K/ L 0.24-0.36 H (test code = 415) EOSINOPHILS ABSOLUTE COUNT 0.00 K/ L 0.04-0.36 L (BEAKER) (test code = 416) BASOPHILS ABSOLUTE COUNT (BEAKER) 0.02 K/ L 0.01-0.08 (test code = 417) IMMATURE GRANULOCYTES-RELATIVE 0.40 % 0.00-1.00 PERCENT (BEAKER) (test code = 2801) HCG, QUANTITATIVE, [id number] 11:31:24 Test Item Value Reference Range Interpretation Comments GONADOTROPIN, CHORIONIC (HCG) QUANT < mIU/mL 0-10 ([facility]) (test code = 649) Non- Females: <10 mIU/mL Females: Gestation Age Reference Range(mIU/mL) 0.2-1 Week 5-50 1-2 Weeks 50-500 2-3 Weeks 100-5,000 3-4 Weeks 500-10,000 4-5 Weeks 1,000-50,000 5-6 Weeks 10,000-100,000 6-8 Weeks 15,000- 200,000 2-3 Months 10,000-100,000 Box Packer ID - SHANIQUA WHEMOGLOBIN [id number] 10:23:59 Test Item Value Reference Range Interpretation Comments HEMOGLOBIN A1C 6.1 % See_Comment H [Automated m essage] ELECTROPHORESIS ([facility]) The system which (test code = 3811) generated this result transmitted ref erence range: <=5.6%. The reference range was not used to int erpret this result as normal/abnormal . "The A1c is measured using a NGSP-certified method. HbA1c value equal to or greater than 6.5% as thediagnosis cutoff for diabetes. An HbA1c value of 5.7- 6.4% indicates increased risk for diabetes (prediabetes)."Box Packer ID - ADM [id number] 05:39:25 Test Item Value Reference Range Interpretation Comments FERRITIN ([facility]) (test code = 12.69 ng/mL 5.00-275.00 361) Box Packer ID - DINAH WCOMPREHENSIVE METABOLIC [id number] 04:39:22 Test Item Value Reference Range Interpretation Comments TOTAL PROTEIN 6.9 gm/dL 6.0-8.3 (BEAKER) (test code = 770) ALBUMIN (BEAKER) 3.7 g/dL 3.5-5.0 (test code = 1145) ALKALINE 214 U/L 40-150 H PHOSPHATASE (BEAKER) (test code = 346) BILIRUBIN TOTAL 1.2 mg/dL 0.2-1.2 (BEAKER) (test code = 377) SODIUM (BEAKER) 135 meq/L 136-145 L (test code = 381) POTASSIUM (BEAKER) 4.1 meq/L 3.5-5.1 (test code = 379) CHLORIDE (BEAKER) 105 meq/L 98-107 (test code = 382) CO2 (BEAKER) (test 20 meq/L 22-29 L code = 355) BLOOD UREA 7 mg/dL 7-21 NITROGEN (BEAKER) (test code = 354) CREATININE 0.71 mg/dL 0.57-1.25 (BEAKER) (test code = 358) GLUCOSE RANDOM 203 mg/dL 70-105 H (BEAKER) (test code = 652) CALCIUM (BEAKER) 10.2 mg/dL 8.4-10.2 (test code = 697) AST (SGOT) 94 U/L 5-34 H (BEAKER) (test code = 353) ALT (SGPT) 169 U/L 6-55 H (BEAKER) (test code = 347) EGFR (BEAKER) 105 Interpretatio n of eGFR (test code = 1092) mL/min/1.[address] age Description sq m Result G1 Norm al or high >=90 G2 Mildly decreased 60-89 G3a Mildl y to moderately 45-5 9 G3b Moderately to s everely 30-44 G4 Severl y decreased 15-29 G5 Kidney failure <15Reported eGF R is based on the CKD-EPI 2020 equation that d oes not use a race coefficientEsti mated GFR is not as accur ate as Creatinine Alexandra barber in predicting glom erular filtration rate . Estimated GFR is not appl icable for dialysis patien ts Box Packer ID - DINAH -REACTIVE [id number] 04:39:22 Test Item Value Reference Range Interpretation Comments C-REACTIVE PROTEIN (BEAKER) (test 0.24 mg/dL 0.00-0.50 code = 676) Box Packer ID - DINAH WLACTIC ACID, [id number] 04:26:34 Test Item Value Reference Range Interpretation Comments LACTATE BLOOD VENOUS (2) (BEAKER) 1.01 mmol/L 0.50-2.20 (test code = 2872) Box Packer ID - DINAH [id number] 04:26:16 Test Item Value Reference Range Interpretation Comments D-DIMER QUANTITATIVE (BEAKER) 0.94 MG/L FEU <0.50 H (test code = 671) Intended Use: The D-Dimer Assay can be used to aid in the diagnosis of Deep Vein Thrombosis (DVT) and Pulmonary Embolism Disease (PED).In patients with low pre- test probability, various studies concerning STA Liatest D-dimer test have reported that with a cutoff value of 0.50 MG/L FEU, the Negative Predictive Value (NPV) regarding the exclusion of thrombosis is within 95-100% range.CBC W/PLT COUNT & AUTO [id number] 04:18:06 Test Item Value Reference Range Interpretation Comments WHITE BLOOD CELL COUNT (BEAKER) 6.4 K/ L 3.5-10.5 (test code = 775) RED BLOOD CELL COUNT (BEAKER) 4.70 M/ L 3.93-5.22 (test code = 761) HEMOGLOBIN (BEAKER) (test code = 13.0 GM/DL 11.2-15.7 410) HEMATOCRIT (BEAKER) (test code = 39.8 % 34.1-44.9 411) MEAN CORPUSCULAR VOLUME (BEAKER) 85 fL 79-95 (test code = 753) MEAN CORPUSCULAR HEMOGLOBIN 27.7 pg 25.6-32.2 (BEAKER) (test code = 751) MEAN CORPUSCULAR HEMOGLOBIN CONC 32.7 GM/DL 32.2-35.5 (BEAKER) (test code = 752) RED CELL DISTRIBUTION WIDTH 16.2 % 11.7-14.4 H (BEAKER) (test code = 412) PLATELET COUNT (BEAKER) (test 279 K/CU MM 150-450 code = 756) MEAN PLATELET VOLUME (BEAKER) 11.9 fL 9.4-12.3 (test code = 754) NUCLEATED RED BLOOD CELLS 0 /100 WBC 0-0 (BEAKER) (test code = 413) NEUTROPHILS RELATIVE PERCENT 87 % (BEAKER) (test code = 429) LYMPHOCYTES RELATIVE PERCENT 11 % (BEAKER) (test code = 430) MONOCYTES RELATIVE PERCENT 2 % (BEAKER) (test code = 431) EOSINOPHILS RELATIVE PERCENT 0 % (BEAKER) (test code = 432) BASOPHILS RELATIVE PERCENT 0 % (BEAKER) (test code = 437) NEUTROPHILS ABSOLUTE COUNT 5.49 K/ L 1.56-6.13 (BEAKER) (test code = 670) LYMPHOCYTES ABSOLUTE COUNT 0.70 K/ L 1.18-3.74 L (BEAKER) (test code = 414) MONOCYTES ABSOLUTE COUNT (BEAKER) 0.13 K/ L 0.24-0.36 L (test code = 415) EOSINOPHILS ABSOLUTE COUNT 0.00 K/ L 0.04-0.36 L (BEAKER) (test code = 416) BASOPHILS ABSOLUTE COUNT (BEAKER) 0.01 K/ L 0.01-0.08 (test code = 417) IMMATURE GRANULOCYTES-RELATIVE 0.30 % 0.00-1.00 PERCENT (BEAKER) (test code = 2801) FL, [id number] 19:50:00Reason for exam:->ABNORMAL [facility] : 1975 Sex: FAn imaging unit was utilized for this procedure. No radiologist interpretation was requested. Refer to the EMR for findings. Refer to PACS for any patient radiation dose information.BASIC METABOLIC [id number] 11:41:56 Test Item Value Reference Range Interpretation Comments SODIUM (BEAKER) 139 meq/L 136-145 (test code = 381) POTASSIUM 4.0 meq/L 3.5-5.1 Specimen slight ly (BEAKER) (test hemolyzed code = 379) CHLORIDE (BEAKER) 110 meq/L 98-107 H (test code = 382) CO2 (BEAKER) 20 meq/L 22-29 L (test code = 355) BLOOD UREA 3 mg/dL 7-21 L NITROGEN (BEAKER) (test code = 354) CREATININE 0.58 mg/dL 0.57-1.25 Specimen slight ly (BEAKER) (test hemolyzed code = 358) GLUCOSE RANDOM 110 mg/dL 70-105 H (BEAKER) (test code = 652) CALCIUM (BEAKER) 8.9 mg/dL 8.4-10.2 (test code = 697) EGFR (BEAKER) 112 Interpretatio n of eGFR (test code = mL/min/1.73 values Stage De scription 1092) sq m Result G1 Lisa l or high >=90 G2 Mildly decreased 60-89 G3a Mildl y to moderately 45-5 9 G3b Moderately to s everely 30-44 G4 Severl y decreased 15-29 G5 Kidney failure <15Reported eGF R is based on the CKD-EPI 2020 equation that d oes not use a race coefficientEsti mated GFR is not as accur ate as Creatinine Alexandra elisabeth in predicting glom erular filtration rate . Estimated GFR is not appl icable for dialysis patien ts Box Packer ID - DINAH WSARS-CoV2/RT-PCR (Asymptomatic ONLY)2022-01-20 08:15:19 Test Item Value Reference Interpretation Comments Range SARS-COV2/RT-PCR Positive Negative AA The SARS-Co V-2 (test code = target nucleic 27144-6) acids are detec penny in this specime n. The presence SARS-CoV-2 nucl eic acids cannot ru le out co-infectio ns or disease caus ed by other viral or bacterial pathogens. As w ith any molecular t est, mutations withi n the target irvin ons of the Xpert Xp ress SARS-CoV-2 test could affect pr artem and/or probe binding resulti ng in failure to detect the pres ence of virus or the virus being detected less predictably. Fa lse negative result s may occur if vi mimi is present at levels below th e analytical limi t of detection. This SARS CoV-2 test is a rapid, real-t daya RT-PCR test intended for th e qualitative detection of nucleic acid fr om SARS-CoV-2 in a nasopharyngeal swab specimen collec penny from individual s suspected of COVID-19 by the ir healthcare provider. Resul ts from the Xpert Xpress SARS-CoV -2 test should be correlated with the clinical histor y, epidemiological data, and other data available to the clinician evaluating the patient. Viral nucleic acid ma y persist in vivo , independent of virus viability . Detection of analyte target( s) does not imply that the correspondi ng virus(es) are infectious or a re the causative agents for clin ical symptoms. BALAJI (test code = This test has been BALAJI) authorized by FDA under an EUA for use by authorized laboratories. This test is only authorized for the duration of the declaration that circumstances exist justifying the authorization of emergency use of in vitro diagnostic tests for detection and/or diagnosis of COVID-19 under Section 564(b)(1) of the Federal Food, Drug and Cosmetic Act, 21 U.S.C. 360bbb-3(b)(1), unless the authorization is terminated or revoked sooner. Fact Sheet for Healthcare Providers: https://www.[employer]/Documents/Xp ert%20Xpress%20SAR S%20CoV-2/Fact%20S heets/302-3802%20S ARS-COV-2%20HEALTH CARE%20PROVIDERS%2 0FACT%20SHEET.pdf Fact Sheet for Healthcare Patients: https://www.[employer]/Documents/Xp ert%20Xpress%20SAR S%20CoV-2/Fact%20S heets/302-3801%20S ARS-COV-2%20PATIEN T%20FACT%20SHEET.p df Lab Interpretation Abnormal (test code = 26457-0) [facility])2022-01-20 08:15:19 Test Item Value Reference Range Interpretation Comments SARS-COV2/RT-PCR Positive Negative AA The SARS-Co V-2 target (test code = nucleic acids a re detected ) in this specime n. The presence SARS-C oV-2 nucleic acids cannot ru le out co-infections o r disease caused by other viral or bacterial patho gens. As with any molecular t est, mutations withi n the target regions of the Xpert Xpress SARS-CoV-2 test could affect primer and/or p robe binding resulting in fa ilure to detect the pres ence of virus or the virus be ing detected less predictabl y. False negative result s may occur if virus is pre sent at levels below th e analytical limit of detect ion. This SARS CoV-2 test is a rapid, real-time RT-PC R test intended for e qualitative detection of nu cleic acid from SARS-CoV-2 in a nasopharyngeal swab specimen collected from individuals suspected of CO VID-19 by [facility]. Results from e Xpert Xpress SARS-CoV -2 test should be corre lated with the clinical hi story, epidemiological data, and other data avai lable to the clinician evalu ating the patient. Viral nucleic acid may persist in vivo, independent of virus viability. Dete ction of analyte target( s) does not imply that the corresponding virus(es) are i nfectious or are the causati ve agents for clinical sympto ms. This test has been authorized by FDA under an EUA for use by authorized laboratories. This test is only authorized for the duration of the declaration that circumstances exist justifying the authorization of emergency use of in vitro diagnostic tests for detection and/or diagnosis of COVID-19 under Section 564(b)(1) of the Federal Food, Drug and Cosmetic Act, 21 U.S.C. 360bbb-3(b)(1), unless the authorization is terminated or revoked sooner. Fact Sheet for Healthcare Providers: https://www.[employer]/Documents/Xpert%20Xpress%20SARS%20CoV-2/Fact%20Sheets/659-7962%66ZOXE-VFK-5%20 HEALTHCARE%20PROVIDERS%20FACT%20SHEET.pdf Fact Sheet for Healthcare Patients: https://www.[employer]/Documents/Xpert%20Xp ress%20SARS%20CoV-2/Fact%20Sheets/320-3801%28RHPA-OPI-0%20PATIENT%20FACT%20SHEET .pdfHEPATIC FUNCTION [id number] 07:16:13 Test Item Value Reference Range Interpretation Comments TOTAL PROTEIN (BEAKER) 6.2 gm/dL 6.0-8.3 Speci men slightly (test code = 770) hemolyzed ALBUMIN (BEAKER) (test 3.3 g/dL 3.5-5.0 L Speci men slightly code = 1145) hemolyzed BILIRUBIN TOTAL 1.8 mg/dL 0.2-1.2 H Specimen sli ghtly (BEAKER) (test code = hemoly zed 377) BILIRUBIN DIRECT 0.8 mg/dL 0.1-0.5 H Specimen sl ightly (BEAKER) (test code = hemoly zed 706) ALKALINE PHOSPHATASE 199 U/L 40-150 H (BEAKER) (test code = 346) AST (SGOT) (BEAKER) 106 U/L 5-34 H Specimen slightly (test code = 353) hemolyzed ALT (SGPT) (BEAKER) 156 U/L 6-55 H Specimen slightly (test code = 347) hemolyzed Box Packer ID - DINAH [id number] 07:16:12 Test Item Value Reference Range Interpretation Comments MAGNESIUM (BEAKER) 1.9 mg/dL 1.6-2.6 Specimen slightly (test code = 627) hemolyzed Box Packer ID - DINAH [id number] 07:16:12 Test Item Value Reference Range Interpretation Comments PHOSPHORUS (BEAKER) 2.7 mg/dL 2.3-4.7 Specimen slightly (test code = 604) hemolyzed Box Packer ID - DINAH WCBC W/PLT COUNT & AUTO [id number] 06:40:15 Test Item Value Reference Range Interpretation Comments WHITE BLOOD CELL COUNT (BEAKER) 5.7 K/ L 3.5-10.5 (test code = 775) RED BLOOD CELL COUNT (BEAKER) 4.47 M/ L 3.93-5.22 (test code = 761) HEMOGLOBIN (BEAKER) (test code = 12.5 GM/DL 11.2-15.7 410) HEMATOCRIT (BEAKER) (test code = 38.2 % 34.1-44.9 411) MEAN CORPUSCULAR VOLUME (BEAKER) 86 fL 79-95 (test code = 753) MEAN CORPUSCULAR HEMOGLOBIN 28.0 pg 25.6-32.2 (BEAKER) (test code = 751) MEAN CORPUSCULAR HEMOGLOBIN CONC 32.7 GM/DL 32.2-35.5 (BEAKER) (test code = 752) RED CELL DISTRIBUTION WIDTH 16.3 % 11.7-14.4 H (BEAKER) (test code = 412) PLATELET COUNT (BEAKER) (test 248 K/CU MM 150-450 code = 756) MEAN PLATELET VOLUME (BEAKER) 12.1 fL 9.4-12.3 (test code = 754) NUCLEATED RED BLOOD CELLS 0 /100 WBC 0-0 (BEAKER) (test code = 413) NEUTROPHILS RELATIVE PERCENT 50 % (BEAKER) (test code = 429) LYMPHOCYTES RELATIVE PERCENT 31 % (BEAKER) (test code = 430) MONOCYTES RELATIVE PERCENT 16 % (BEAKER) (test code = 431) EOSINOPHILS RELATIVE PERCENT 3 % (BEAKER) (test code = 432) BASOPHILS RELATIVE PERCENT 1 % (BEAKER) (test code = 437) NEUTROPHILS ABSOLUTE COUNT 2.82 K/ L 1.56-6.13 (BEAKER) (test code = 670) LYMPHOCYTES ABSOLUTE COUNT 1.74 K/ L 1.18-3.74 (BEAKER) (test code = 414) MONOCYTES ABSOLUTE COUNT (BEAKER) 0.90 K/ L 0.24-0.36 H (test code = 415) EOSINOPHILS ABSOLUTE COUNT 0.16 K/ L 0.04-0.36 (BEAKER) (test code = 416) BASOPHILS ABSOLUTE COUNT (BEAKER) 0.05 K/ L 0.01-0.08 (test code = 417) IMMATURE GRANULOCYTES-RELATIVE 0.50 % 0.00-1.00 PERCENT (BEAKER) (test code = 2801) PROTHROMBIN [id number] 06:07:06 Test Item Value Reference Range Interpretation Comments PROTIME (BEAKER) 13.2 seconds 11.9-14.2 (test code = 759) INR (BEAKER) (test 1.06 See_Comment [Automat ed message] code = 370) The system [employer] generated this result transmitted ref erence range: <=5.90. The reference range was not used to int erpret this result as normal/abnormal . RECOMMENDED COUMADIN/WARFARIN INR THERAPY RANGESSTANDARD DOSE: 2.0 - 3.0 Includes: PROPHYLAXIS for venous thrombosis, systemic embolization; TREATMENT for venous thrombosis and/or pulmonary embolus.HIGH RISK: Target INR is 2.5-3.5 for patients with mechanical heart valves.
[2022-03-05] MEDS ORDERED: MORPHINE 4 MG/ML SYR ONE (23:35)
[2022-03-05] MEDS ORDERED: ONDANSETRON 4 MG/2 ML VIAL ONE (23:35)
[2022-03-06 00:01] LABS: Absolute Lymphocytes (CBC) 2.5 K/uL (0.7-4.9); Hematocrit 42.2 % (36.0-45.0); MCV 83.4 fL (80-100); MPV 9.8 fL (7.6-11.3); RBC Red Blood Cell Count 5.06 M/uL (3.86-4.86)
[2022-03-06 00:40] LABS: Urine Blood Negative (Negative); Urine Glucose Negative (Negative); Urine Protein Negative (Negative); Urine Specific Gravity 1.015 (1.005-1.030)
[2022-03-06 00:51] LABS: Albumin 3.2 g/dL (3.4-5.0); Bilirubin Total 0.3 mg/dL (0.2-1.0); Potassium 4.1 mmol/L (3.5-5.1); Protein, Total 7.1 g/dL (6.4-8.2)
--- NOTE | 2022-03-06 01:02 | ER ---
Nurse's Notes [facility] Name: Aby Stout Age: 46 yrs Sex: Female : 1975 Arrival Date: 03/05/2022 Time: 23:16 Bed 8 Private MD: Diagnosis: Lower abdominal pain, unspecified Presentation: 03/05 23:23 Chief complaint: Lower abdominal pain x 2 weeks. Coronavirus screen: At this time, the hb client does not indicate any symptoms associated with coronavirus-19. Ebola Screen: No symptoms or risks identified at this time. Initial Sepsis Screen: Does the patient meet any 2 criteria? No. Patient's initial sepsis screen is negative. Does the patient have a suspected source of infection? No. Patient's initial sepsis screen is negative. Risk Assessment: Do you want to hurt yourself or someone else? Patient reports no desire to harm self or others. Onset of symptoms was February 18, 2022. 23:23 Method Of Arrival: Ambulatory hb 23:23 Acuity: TAPAN 3 hb Historical: - Allergies: 23:24 Azithromycin; hb - Home Meds: 23:24 atenolol 50 mg Oral tab 1 tab once daily [Active]; hb - PMHx: 23:24 Anxiety; Hypertension; hb - PSHx: 23:24 bladder sling; hb - Immunization history:: Adult Immunizations up to date. - Social history:: Smoking status: Patient denies any tobacco usage or history of. - Family history:: not pertinent. - Hospitalizations: : No recent hospitalization is reported. Screenin:45 [facility] ED Fall Risk Assessment (Adult) History of falling in the last 3 months, aa9 including since admission No falls in past 3 months (0 pts) Confusion or Disorientation No (0 pts) Intoxicated or Sedated No (0 pts) Impaired Gait No (0 pts) Mobility Assist Device Used No (0 pt) Altered Elimination No (0 pt) Score/Fall Risk Level 0 - 2 = Low Risk Oriented to surroundings, Maintained a safe environment. Ellen Dumpty Scale Fall Assessment Tool (age< 18yrs) Age 13 years and above (1 pt) Gender Female (1 pt) Diagnosis Other diagnosis (1 pt) Cognitive Impairments Oriented to own ability (1 pt) Environmental Factors Outpatient area (1 pt) Response to Surgery/Sedation/Anesthesia More than 48 hours/ None (1 pt) Medication Usage Other medications/ None (1 pt) Fall Risk Score/ Level Low Fall Risk: </= 11 points. Abuse screen: Denies threats or abuse. Denies injuries from another. Nutritional screening: No deficits noted. Tuberculosis screening: No symptoms or risk factors identified. Fall Risk No fall in past 12 months (0 pts). No secondary diagnosis (0 pts). IV access (20 points). Ambulatory Aid- None/Bed Rest/Nurse Assist (0 pts). Gait- Normal/Bed Rest/Wheelchair (0 pts) Mental Status- Oriented to own ability (0 pts). Total Nevarez Fall Scale indicates No Risk (0-24 pts). Assessment: 23:43 General: Appears in no apparent distress. comfortable, Behavior is calm, cooperative, aa9 appropriate for age. Pain: Complains of pain in abdomen. Neuro: Level of Consciousness is awake, alert, obeys commands, Oriented to person, place, time, situation. Cardiovascular: Patient's skin is warm and dry. Respiratory: Airway is patent Respiratory effort is even. GI: Bowel sounds present X 4 quads. Patient currently denies diarrhea, nausea. : No signs and/or symptoms were reported regarding the genitourinary system. Vital Signs: 23:23 BP 176 / 93; Pulse 84; Resp 16; Temp 97.4(TE); Pulse Ox 100% on R/A; Pain 7/10; hb ED Course: 23:16 Patient arrived in ED. ja2 23:19 Ilir River MD is Attending Physician. rn 23:24 Triage completed. hb 23:24 Arm band placed on. hb 23:40 Inserted saline lock: 20 gauge in right antecubital area, using aseptic technique. aa9 Blood collected. 23:42 CBC with Diff Sent. aa9 23:42 CMP Sent. aa9 23:42 Lipase Sent. aa9 23:44 Bhakti Mcallister, RN is Primary Nurse. aa9 23:46 Patient has correct armband on for positive identification. Bed in low position. Call aa9 light in reach. Warm blanket given. 03/06 00:04 CT Abd/Pelvis - IV Contrast Only In Process Unspecified. EDMS 01:11 No provider procedures requiring assistance completed. IV discontinued, intact, aa9 bleeding controlled, No redness/swelling at site. Pressure dressing applied. Administered Medications: 03/05 23:42 Drug: Zofran (Ondansetron) 4 mg Route: IVP; Site: right antecubital; aa9 23:42 Drug: morphine 4 mg Route: IVP; Infused Over: 4 mins; Site: right antecubital; aa9 Medication: 23:45 VIS not applicable for this client. aa9 Outcome: 03/06 01:02 Discharge ordered by . rn 01:11 Discharged to home ambulatory. aa9 01:11 Condition: stable 01:11 Discharge instructions given to patient, Instructed on discharge instructions, follow up and referral plans. Demonstrated understanding of instructions, follow-up care. 01:11 Patient left the ED. aa9 Signatures: Dispatcher [employer] EDMS Ilir River MD MD rn Baxter, Heather, RN RN hb Alexander, Jessica ja2 Avalos, Aylin, RN RN aa9
--- NOTE | 2022-03-06 01:02 | EDPHYS ---
Physician Documentation [facility] Name: Aby Stout Age: 46 yrs Sex: Female : 1975 Arrival Date: 03/05/2022 Time: 23:16 Bed 8 Private MD: ED Physician Ilir River HPI: 03/05 23:39 This 46 yrs old Female presents to ER via Ambulatory with complaints of Abdominal Pain. rn 23:40 The patient presents with abdominal pain in the lower abdomen. rn 23:41 Onset: The symptoms/episode began/occurred 2 week(s) ago. The symptoms do not radiate. rn Associated signs and symptoms: Pertinent positives: vaginal bleeding, Pertinent negatives: anorexia, blood in stools, chest pain, dysuria, fever, hematuria, vaginal discharge. The symptoms are described as crampy. Modifying factors: The symptoms are alleviated by nothing, the symptoms are aggravated by nothing. Severity of pain: At its worst the pain was mild in the emergency department the pain is unchanged. The patient has not experienced similar symptoms in the past. The patient has not recently seen a physician. Pt reports lower abd cramps and pressure, is not menopausal, had gallbladder surgery last month, presents with 2 weeks of abd pressure. Reports vaginal bleeding for 2 weeks that has now stopped. 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 Reports told in past "something on cervix". Reports previous periods were heavy as well. . Historical: - Allergies: 23:24 Azithromycin; hb - Home Meds: 23:24 atenolol 50 mg Oral tab 1 tab once daily [Active]; hb - PMHx: 23:24 Anxiety; Hypertension; hb - PSHx: 23:24 bladder sling; hb - Immunization history:: Adult Immunizations up to date. - Social history:: Smoking status: Patient denies any tobacco usage or history of. - Family history:: not pertinent. - Hospitalizations: : No recent hospitalization is reported. ROS: 23:41 Constitutional: Negative for fever, chills, and weight loss, Eyes: Negative for injury, rn pain, redness, and discharge, Cardiovascular: Negative for chest pain, palpitations, and edema, Respiratory: Negative for shortness of breath, cough, wheezing, and pleuritic chest pain, Abdomen/GI: + lower abd pressure Back: Negative for injury and pain, : Negative for injury, bleeding, discharge, and swelling, MS/Extremity: Negative for injury and deformity, Skin: Negative for injury, rash, and discoloration, Neuro: Negative for headache, weakness, numbness, tingling, and seizure. Exam: 23:41 Constitutional: This is a well developed, well nourished patient who is awake, alert rn Head/Face: Normocephalic, atraumatic. Cardiovascular: Regular rate and rhythm. No pulse deficits. Respiratory: No increased work of breathing, no retractions or nasal flaring. Abdomen/GI: soft, suprapubic tenderness, no rebound, no masses Skin: Warm, dry MS/ Extremity: Pulses equal, no cyanosis. Neuro: Awake and alert, GCS 15 Vital Signs: 23:23 BP 176 / 93; Pulse 84; Resp 16; Temp 97.4(TE); Pulse Ox 100% on R/A; Pain 7/10; hb MDM: 23:19 Patient medically screened. rn 03/06 01:00 Differential diagnosis: diverticulitis, non-specific abd pain, fibroid. Data reviewed: rn vital signs, nurses notes, lab test result(s), radiologic studies, CT scan, and as a result, I will discharge patient. Counseling: I had a detailed discussion with the patient and/or guardian regarding: the historical points, exam findings, and any diagnostic results supporting the discharge/admit diagnosis, lab results, radiology results, the need for outpatient follow up, to return to the emergency department if symptoms worsen or persist or if there are any questions or concerns that arise at home. Special discussion: Based on the patient's Hx, exam, and Dx evaluation, there is no indication for emergent surgery or inpatient Tx. It is understood by the patient/guardian that if the Sx's persist or worsen they need to return immediately for re-evaluation. I discussed with the patient/guardian in detail that at this point there is no indication for admission to the hospital. It is understood, however, that if the symptoms persist or worsen the patient needs to return immediately for re-evaluation. Based on the history and exam findings, there is no indication for further emergent testing or inpatient evaluation. I discussed with the patient/guardian the need to see the OB Gyne specialist for further evaluation of the symptoms. ED course: No acute findings in our workup today, stressed with patient the importance of GAS GENERATOR OPERATOR f/u for full evaluation including cervical examination and u/s. . 03/05 23:30 Order name: CBC with Diff; Complete Time: 00:28 rn 03/05 23:30 Order name: CMP; Complete Time: 01:00 rn 03/05 23:30 Order name: Lipase; Complete Time: 01:00 rn 03/05 23:30 Order name: CT Abd/Pelvis - IV Contrast Only rn 03/06 00:12 Order name: CREATININE WHOLE BLOOD; Complete Time: 00:28 EDOK 03/06 00:40 Order name: Urine Dipstick-Ancillary; Complete Time: 01:00 EDOK 03/05 23:30 Order name: IV Saline Lock; Complete Time: 23:42 rn 03/05 23:30 Order name: Labs collected and sent; Complete Time: 23:42 rn 03/05 23:30 Order name: Urine Dipstick-Ancillary (obtain specimen); Complete Time: 00:47 rn Administered Medications: 03/05 23:42 Drug: Zofran (Ondansetron) 4 mg Route: IVP; Site: right antecubital; aa9 23:42 Drug: morphine 4 mg Route: IVP; Infused Over: 4 mins; Site: right antecubital; aa9 Disposition Summary: 03/06/22 01:02 Discharge Ordered Location: Home rn Problem: an ongoing problem rn Symptoms: have improved rn Condition: Stable rn Diagnosis - Lower abdominal pain, unspecified rn Followup: rn - With: Private Physician - When: As needed - Reason: Recheck today's complaints, Re-evaluation by your physician Discharge Instructions: - Discharge Summary Sheet rn - Abdominal Pain, Adult rn Forms: - Medication Reconciliation Form rn - Thank You Letter rn - Antibiotic brass burnisher - Prescription Opioid Use rn - Work release form aa9 Signatures: Dispatcher [employer] EDMS Ilir River MD MD rn Baxter, Heather RN Bhakti Suarez RN RN aa9 Sallie Alvarez PA-C PA-C [id number]
[2022-03-06 01:38] VITALS: BP 176/93; TEMP 97.4; O2SAT 100
--- NOTE | 2022-03-06 12:38 | RAD REPORT ---
EXAM DESCRIPTION: CT - Abdomen Pelvis W Contrast - 03/06/2022 6:18 am CLINICAL HISTORY: 46 years Female lower abd pain COMPARISON: None TECHNIQUE: Images were obtained in axial, sagittal, and coronal planes. Intravenous contrast was adm inistered. This exam was performed according to our departmental dose-optimization program which includes use of Automated Exposure Control, adjustment of the mA and/or kV according to patient size and/or use of i terative reconstruction technique. FINDINGS: No abnormality involving the liver, spleen, pancreas, or adrenal glands bilaterally. Prior scoliosis thickening. No obstructing renal or ureteral calculi bilaterally. Mild bilateral hydronephrosis likely related to the degree of bladder distention. Left ovarian cysts. These findings are likely benign. No further f ollow-up needed. Appendix within normal limits. No bowel obstruction, perforation, or inflammation. Calcification abdominal aorta with no dilatation seen. Unremarkable portal vein. No adenopathy or abn ormal collections seen. No abnormality lower lungs bilaterally. No acute osseous abnormality. IMPRESSION: No acute intra-abdominal abnormality. Electronically signed by: Kailee Sung MD 03/06/2022 12:28 AM UPHOLSTERER OUTSIDE Due to temporary technical issues with the PACS/Fluency reporting system, reports are being signed by the in house radiologists without review as a courtesy to insure prompt reporting. The interpreting radiologist is fully responsible for the content of the report.
== END 2022-03-06 01:11 | disposition home or self-care (01) ==
LOC: ER 23:10
DX: R10.30 Lower abdominal pain, unspecified (principal); I10 Essential (primary) hypertension; F41.9 Anxiety disorder, unspecified; Z88.1 Allergy status to other antibiotic agents
CPT/HCPCS: 36415; 74177; 80053; 81003; 82565; 83690; 85025; 96374; 96375; 99284; J2405; Q9967

== ENCOUNTER 2023-06-16 17:23 | Emergency (ER) | payer SELFPAY ==
[2023-06-16 18:17] LABS: Hemoglobin 15.8 g/dL (12.0-15.0); MCH 29.9 pg (27.0-35.0); MCHC 33.6 g/dL (32.0-36.0); MPV 10.4 fL (7.6-11.3); Platelets 239 thou/uL (152-406); RBC Red Blood Cell Count 5.28 M/uL (3.86-4.86); Red Cell Distribution Width 16.8 % (12.1-15.2)
[2023-06-16 18:37] LABS: Anion Gap 10.5 mEq/L (5.0-15.0); Potassium 4.5 mEq/L (3.5-5.1)
[2023-06-16] MEDS ORDERED: INSULIN REGULAR (HUMAN) 100 UNIT/ML ONE (18:58)
[2023-06-16] MEDS ORDERED: NA CHLORIDE 0.9% 1,000 ML ONE (18:59)
[2023-06-16] MEDS ORDERED: KETOROLAC 30 MG/ML INJ ONE (19:00)
--- NOTE | 2023-06-16 19:03 | RAD REPORT ---
EXAM DESCRIPTION: US - Pelvis Complete - 06/16/2023 6:44 pm CLINICAL HISTORY: Pelvic pain COMPARISON: none FINDINGS: The uterus measures cm. 1.4 centimeter intramural fibroid within the uterine fundus. The endometrial stripe measures 3 millimeters The ovaries are normal in size and echotexture. The right ovary normal in size and echotexture. Left ovary not seen secondary to overlying bowel gas. No significant free fluid is seen. IMPRESSION: 1.4 centimeter uterine fibroid
--- NOTE | 2023-06-16 19:40 | EDPHYS ---
Physician Documentation [facility] Name: Aby Stout Age: 48 yrs Sex: Female : 1975 Arrival Date: 06/16/2023 Time: 17:23 Bed 10 Private MD: ED Physician Mandeep Zimmerman HPI: 06/15 17:48 This 48 yrs old Female presents to ER via Unassigned with complaints of Abdominal Pain. ms3 17:48 48-year-old female with past medical history of anxiety, hypertension presents to the [facility] emergency department for vaginal bleeding that began yesterday. Patient notes she is also had vaginal itching and applied Monistat prior to her vaginal bleeding. Patient states she has gone through 12 pads today. Patient denies any alleviating or inciting factors. Patient states her last period was 3 months ago. 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 - Social history:: Smoking status: Patient reports the use of cigarette tobacco products, smokes one pack cigarettes per day. ROS: 17:48 Constitutional: Negative for fever, and chills. Cardiovascular: Negative for chest ms3 pain, and palpitations. Respiratory: Negative for shortness of breath, cough, wheezing, and pleuritic chest pain, Abdomen/GI: Negative for abdominal pain, nausea, vomiting, diarrhea, and constipation, 17:48 : Positive for vaginal bleeding, Exam: 17:48 Constitutional: This is a well developed, well nourished patient who is awake, alert, ms3 and in no acute distress. Head/Face: Normocephalic, atraumatic. Chest/axilla: Normal chest wall appearance and motion. Nontender with no deformity. Cardiovascular: Regular rate and rhythm with a normal S1 and S2. No gallops, murmurs, or rubs. Normal PMI, no JVD. No pulse deficits. Respiratory: Lungs have equal breath sounds bilaterally, clear to auscultation and percussion. No rales, rhonchi or wheezes noted. No increased work of breathing, no retractions or nasal flaring. Abdomen/GI: Soft, non-tender, with normal bowel sounds. No distension or tympany. No guarding or rebound. No evidence of tenderness throughout. Skin: Warm, dry with normal turgor. Normal color with no rashes, no lesions, and no evidence of cellulitis. MS/ Extremity: Pulses equal, no cyanosis. Neurovascular intact. Full, normal range of motion. 19:02 : Pelvic Exam: External exam: erythema is noted, excoriation noted, ms3 Vital Signs: 17:51 BP 147 / 98; Pulse 87; Resp 18; Temp 98.5; Pulse Ox 99% ; Weight 81.65 kg; Height 5 ft. ll1 4 in. ; Pain 9/10; 21:27 BP 146 / 98; Pulse 80; Resp 16; cm10 17:51 Body Mass Index 30.90 (81.65 kg, 162.56 cm) ll1 17:51 Pain Scale: Adult ll1 MDM: 17:47 Patient medically screened. ms3 17:48 Differential diagnosis: dysfunctional uterine bleeding, menorrhea, uterine fibroids. ms3 19:41 Data reviewed: vital signs, nurses notes, lab test result(s), radiologic studies, [facility] ultrasound. Consideration of Admission/Observation Escalation of care including admission/observation considered. I considered the following discharge prescriptions or medication management in the emergency department Medications were administered in the Emergency Department. See MAR. Test considered but Not performed: CT: no ct abd pel. 03 17:51 Order name: CBC w/o diff; Complete Time: 18:40 ms3 06/15 17:51 Order name: BMP; Complete Time: 18:40 ms3 06/15 19:04 Order name: Urinalysis w/ reflexes; Complete Time: 21:12 [facility] 06/15 19:04 Order name: PREGU; Complete Time: 21:12 [facility] 06/15 19:05 Order name: Glucose, Ancillary Testing; Complete Time: 19:37 EDMS 06/15 21:09 Order name: Glucose, Ancillary Testing; Complete Time: 21:12 EDMS 06/15 17:51 Order name: US Pelvis Complete; Complete Time: 19:37 ms3 Administered Medications: 19:08 Drug: Insulin Regular Human Sub-Q 10 units Sub-Q once {Co-Signature: ll1 (Amirah Duff RN).} Route: Sub-Q; Site: abdomen; 21:38 Follow up: Response: No adverse reaction cm10 19:08 Drug: NS 0.9% IV 1000 ml IV at 1 bolus Per protocol; 1000 mL bolus Route: IV; Rate: 1 cm10 bolus; Site: left antecubital; 20:09 Follow up: Response: No adverse reaction; IV Status: Order to discontinue infusion; IV cm10 Intake: 500ml 19:08 Drug: Ketorolac IVP 10 mg 10 mg IVP once Route: IVP; Site: left antecubital; cm10 20:09 Follow up: Response: No adverse reaction cm10 19:55 CANCELLED (Duplicate Order): insulin regular human10 units IVP once christen 21:25 Drug: Insulin Glargine Sub-Q 30 units Sub-Q once {Co-Signature: as6 (Enrrique Vaughn cm10 RN).} Route: Sub-Q; Site: left lower abdomen; 21:38 Follow up: Response: No adverse reaction cm10 21:25 Drug: metFORMIN PO 500 mg PO once; with meal or snack Route: PO; cm10 21:38 Follow up: Response: No adverse reaction cm10 21:35 Drug: Fluconazole PO 200 mg PO once Route: PO; cm10 21:38 Follow up: Response: No adverse reaction cm10 Disposition Summary: 06/16/23 19:39 Discharge Ordered Notes: Location: Home christen Condition: Stable christen Diagnosis - Hyperglycemia, unspecified christen - Elevated blood-pressure reading, without diagnosis of hypertension christen - Other specified abnormal uterine and vaginal bleeding christen - Leiomyoma of uterus, unspecified christen - Type 2 diabetes mellitus with hyperglycemia christen Followup: ms3 - With: Nelly Crum MD - When: 2 - 3 days - Reason: Recheck today's complaints Followup: ms3 - With: Carl Sanders DO - When: 2 - 3 days - Reason: Recheck today's complaints Discharge Instructions: - Uterine Fibroids christen - Diabetes Mellitus and Nutrition, Adult christen - Discharge Summary Sheet ms3 - Abnormal Uterine Bleeding ms3 - Hyperglycemia ms3 - Hypertension, Adult ms3 Forms: - Medication Reconciliation Form christen - Thank You Letter christen - Antibiotic Education christen - Prescription Opioid Use christen - Patient Portal Instructions [facility] - Leadership Thank You Letter [facility] Prescriptions: - Metformin 500 mg Oral tablet - take 1 tablet ORAL route every 12 hours for 14 days Then take 1 tablet with christen morning meals AND evening meals; 28 tablet; Refills: 0, Product Selection Permitted - Fluconazole 200 mg Oral tablet - take 1 tablet ORAL route once daily; 4 tablet; Refills: 0, Product Selection [facility] Permitted - Nystatin-Triamcinolone 100,000-0.1 unit/g-% Topical cream - apply 1 application TOPICAL route 2 times per day; 45 gram tube; Refills: 0, [facility] Product Selection Permitted - Hydroxyzine HCl 50 mg Oral Tablet - take 1 tablet ORAL route every 8 hours As needed; 20 tablet; Refills: 0, ms3 Product Selection Permitted Signatures: Dispatcher [employer] EDMS Mandeep Zimmerman MD MD cha Lewis, Lynsay, RN RN ll1 Abhilash Elizalde DO DO ms3 Enrrique Vaughn RN RN as6 Cheryl Juarez RN RN cm10 Amirah Duff RN ll1 Enrrique Vaughn RN as6 Corrections: (The following items were deleted from the chart) 17:51 17:51 Pelvis Complete+US.RAD.BRZ ordered. EDSC EDMS 19:55 19:41 Insulin Regular Human IVP 10 units IVP once ordered. christen velásquez
--- NOTE | 2023-06-16 19:40 | ER ---
Nurse's Notes [facility] Name: Aby Stout Age: 48 yrs Sex: Female : 1975 Arrival Date: 06/16/2023 Time: 17:23 Bed 10 Private MD: Diagnosis: Hyperglycemia, unspecified;Elevated blood-pressure reading, without diagnosis of hypertension;Other specified abnormal uterine and vaginal bleeding;Leiomyoma of uterus, unspecified;Type 2 diabetes mellitus with hyperglycemia Presentation: 06/15 17:51 Chief complaint: Patient states: Vaginal itching for 4 days. Tried Monistat 7 ll1 yesterday, then started to have heavy vaginal bleeding. Coronavirus screen: Client denies travel out of the [place] in the last 14 days. At this time, the client does not indicate any symptoms associated with coronavirus-19. Ebola Screen: Patient denies travel to an Ebola-affected area in the 21 days before illness onset. Initial Sepsis Screen: Does the patient meet any 2 criteria? No. Patient's initial sepsis screen is negative. Does the patient have a suspected source of infection? No. Patient's initial sepsis screen is negative. Risk Assessment: Do you want to hurt yourself or someone else? Patient reports no desire to harm self or others. Onset of symptoms was June 12, 2023. 17:51 Method Of Arrival: Ambulatory ll1 17:51 Acuity: TAPAN 3 ll1 Triage Assessment: 17:51 General: Appears uncomfortable, Behavior is calm, cooperative, appropriate for age. ll1 Pain: Complains of pain in abdomen Quality of pain is described as aching, crampy. GI: Reports lower abdominal pain, upper abdominal pain. : Reports vaginal itching, vaginal bleeding that is heavy flow. 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 - Social history:: Smoking status: Patient reports the use of cigarette tobacco products, smokes one pack cigarettes per day. Screenin:57 [facility] ED Fall Risk Assessment (Adult) History of falling in the last 3 months, cm10 including since admission No falls in past 3 months (0 pts) Confusion or Disorientation No (0 pts) Intoxicated or Sedated No (0 pts) Impaired Gait No (0 pts) Mobility Assist Device Used No (0 pt) Altered Elimination No (0 pt) Score/Fall Risk Level 0 - 2 = Low Risk Oriented to surroundings, Maintained a safe environment, Hourly rounding (assess needs \T\ fall precautionary measures) done. Abuse screen: Denies threats or abuse. Denies injuries from another. Nutritional screening: No deficits noted. Tuberculosis screening: No symptoms or risk factors identified. Assessment: 18:26 Reassessment: No changes from previously documented assessment. ll1 19:08 Reassessment: No changes from previously documented assessment. Patient and/or family cm10 updated on plan of care and expected duration. Pain level reassessed. Patient is alert, oriented x 3, equal unlabored respirations, skin warm/dry/pink. Neuro: No deficits noted. Level of Consciousness is awake, alert, obeys commands, Oriented to person, place, time, situation. Respiratory: No deficits noted. Airway is patent Respiratory effort is even, unlabored, Respiratory pattern is regular, symmetrical. GI: Reports lower abdominal pain. : Reports vaginal itching, vaginal bleeding that is. Derm: No deficits noted. Skin is intact. 19:57 Reassessment: Awaiting results of UA for discharge per Dr. Zimmerman. cm10 Vital Signs: 17:51 BP 147 / 98; Pulse 87; Resp 18; Temp 98.5; Pulse Ox 99% ; Weight 81.65 kg; Height 5 ft. ll1 4 in. ; Pain 9/10; 21:27 BP 146 / 98; Pulse 80; Resp 16; cm10 17:51 Body Mass Index 30.90 (81.65 kg, 162.56 cm) ll1 17:51 Pain Scale: Adult ll1 ED Course: 17:27 Patient arrived in ED. ra3 17:27 Abhilash Elizalde DO is Attending Physician. ms3 17:35 Arm band placed on. as6 17:53 Triage completed. ll1 18:09 BMP Sent. bc6 18:09 CBC w/o diff Sent. bc6 18:09 Initial lab(s) drawn, by [facility], sent to lab. Inserted saline lock: 20 gauge in left bc6 antecubital area, using aseptic technique. Blood collected. 18:26 Patient placed in an exam room, on a stretcher. ll1 18:39 Notified ED physician of a critical lab result(s). Glucose 545. cm10 18:46 US Pelvis Complete In Process Unspecified. EDMS 19:03 Attending Physician role handed off by Abhilash Elizalde DO christen 19:03 Mandeep Zimmerman MD is Attending Physician. christen 19:08 Assist provider with pelvic exam: Performed by Abhilash Elizalde DO Patient tolerated well. cm10 19:39 Nelly Crum MD is Referral Physician. christen 19:39 Carl Sanders DO is Referral Physician. christen 19:58 Patient has correct armband on for positive identification. Bed in low position. Call cm10 light in reach. Provided Education on: ER process and procedures.. 20:00 Cheryl Juarez, RN is Primary Nurse. cm10 20:09 PREGU Sent. cm10 20:09 Urinalysis w/ reflexes Sent. cm10 21:38 IV discontinued, intact, bleeding controlled, No redness/swelling at site. Pressure cm10 dressing applied. Administered Medications: 19:08 Drug: Insulin Regular Human Sub-Q 10 units Sub-Q once {Co-Signature: ll1 (Amirah Duff cm10 RN).} Route: Sub-Q; Site: abdomen; 21:38 Follow up: Response: No adverse reaction cm10 19:08 Drug: NS 0.9% IV 1000 ml IV at 1 bolus Per protocol; 1000 mL bolus Route: IV; Rate: 1 cm10 bolus; Site: left antecubital; 20:09 Follow up: Response: No adverse reaction; IV Status: Order to discontinue infusion; IV cm10 Intake: 500ml 19:08 Drug: Ketorolac IVP 10 mg 10 mg IVP once Route: IVP; Site: left antecubital; cm10 20:09 Follow up: Response: No adverse reaction cm10 19:55 CANCELLED (Duplicate Order): insulin regular human10 units IVP once [facility] 21:25 Drug: Insulin Glargine Sub-Q 30 units Sub-Q once {Co-Signature: as6 (Enrrique Vaughn cm10 RN).} Route: Sub-Q; Site: left lower abdomen; 21:38 Follow up: Response: No adverse reaction cm10 21:25 Drug: metFORMIN PO 500 mg PO once; with meal or snack Route: PO; cm10 21:38 Follow up: Response: No adverse reaction cm10 21:35 Drug: Fluconazole PO 200 mg PO once Route: PO; cm10 21:38 Follow up: Response: No adverse reaction cm10 Medication: 19:57 VIS not applicable for this client. cm10 Intake: 20:09 IV: 500ml; Total: 500ml. cm10 Outcome: 19:39 Discharge ordered by . christen 21:38 Discharged to home ambulatory, cm10 21:38 Condition: good 21:38 Discharge instructions given to patient, Instructed on discharge instructions, follow up and referral plans. medication usage, Demonstrated understanding of instructions, follow-up care, medications, Prescriptions given X 4, 21:38 Patient left the ED. cm10 Signatures: Dispatcher [employer] EDMS Mandeep Zimmerman MD MD cha Lewis, Lynsay, RN RN ll1 Abhilash Elizalde DO DO ms3 Enrrique Vaughn, JORJE RN as6 Rhina Jeffers 6 Cheryl Juarez RN RN 10 Amanda Valdez 3 Amirah Duff RN ll1 Enrrique Vaughn RN as6 Corrections: (The following items were deleted from the chart) 18:26 17:51 : Reports vaginal itching, cesar1 ll1
[2023-06-16 20:37] LABS: Specific Gravity > 1.030 (1.005-1.030)
[2023-06-16 20:38] LABS: Specific Gravity > 1.030 (1.005-1.030); Sqamous Epithelial <5 /HPF (None Seen); Urine Bacteria None Seen /HPF (<20); Urine Bilirubin NEGATIVE (Negative); Urine Blood 3+ (OVER) (Negative); Urine Clarity Clear (Clear); Urine Color Colorless (Yellow); Urine Culture Reflex Order NOT NEEDED; Urine Glucose 4+ (Over) (Negative); Urine Ketones NEGATIVE (Negative); Urine Microscopic Reflex YN ORDER UMIC; Urine Mucus Slight /HPF (None Seen); Urine Nitrite NEGATIVE (Negative); Urine Protein NEGATIVE (Negative); Urine RBC >50 /HPF (None Seen); Urine Urobilinogen Normal (Normal); Urine WBC <5 /HPF (<5); Urine Yeast (Budding) Trace /HPF (None Seen)
[2023-06-16] MEDS ORDERED: METFORMIN HCL 500 MG TAB ONE (21:10)
[2023-06-16] MEDS ORDERED: INSULIN GLARGINE 100 UNIT/ML SQ ONE (21:11)
[2023-06-16] MEDS ORDERED: FLUCONAZOLE 100 MG TAB ONE (21:34)
[2023-06-16 23:38] VITALS: BP 146/98; TEMP 98.5; O2SAT 99
== END 2023-06-16 21:38 | disposition home or self-care (01) ==
LOC: ER 17:23
DX: D25.9 Leiomyoma of uterus, unspecified (principal); E11.65 Type 2 diabetes mellitus with hyperglycemia; R03.0 Elevated blood-pressure reading, without diagnosis of hypertension
CPT/HCPCS: 36415; 76856; 80048; 81001; 81025; 82947; 85027; 96361; 96372; 96374; 99284; J1815; J7030